=== PATIENT | female | born 1950 | race Caucasian/White ===

== ENCOUNTER → 2023-10-15 12:01 | Outpatient (REF) | payer MEDICARE, OTHER, SELFPAY | LOC: WDC 12:01 | PROVIDERS: ATTENDING PHYSICIAN Nurse Practitioner | DX: Z12.31 Encounter for screening mammogram for malignant neoplasm of breast (principal) | CPT/HCPCS: 77063; 77067 ==

== ENCOUNTER → 2023-12-11 13:08 | Outpatient (REF) | payer MEDICARE, OTHER, SELFPAY | LOC: RAD 13:08 | PROVIDERS: ATTENDING PHYSICIAN Obstetrics & Gynecology Gynecologic Oncology; FAMILY PHYSICIAN Internal Medicine | DX: C56.1 Malignant neoplasm of right ovary (principal) | CPT/HCPCS: 71260; 74177; Q9967 ==

== ENCOUNTER → 2024-03-26 08:32 | Outpatient (REF) | payer MEDICARE, OTHER, SELFPAY ==
[2024-03-26 08:56] VITALS: BP 164/61; BP_SYST 84
[2024-03-26] MEDS: ANCEF 10 IV (09:25)
[2024-03-26 10:25] VITALS: BP 176/79; BP_SYST 85
[2024-03-26 10:30] VITALS: BP 183/70; BP_SYST 82
[2024-03-26 10:35] VITALS: BP 165/106; BP_SYST 81
[2024-03-26 10:40] VITALS: BP 171/53; BP_SYST 81
[2024-03-26 10:55] VITALS: BP 171/53
== END ==
LOC: RADI 08:32
PROVIDERS: ATTENDING PHYSICIAN Obstetrics & Gynecology Gynecologic Oncology
DX: C56.1 Malignant neoplasm of right ovary (principal)
CPT/HCPCS: 36561; 76937; 77001; 99152; 99153; C1788

== ENCOUNTER → 2024-04-20 08:05 | Outpatient (REF) | payer MEDICARE, OTHER, SELFPAY ==
[2024-04-20 10:23] LABS: % Basophils 0.4 % (0-2); % Eosinophils 2.7 % (0-6); % Immature Granulocytes 0.6 % (0-0.5); % Lymphocytes 25.6 % (20.5-51.1); % Monocytes 9.3 % (1.7-9.3); % Neutrophils 61.4 % (42.2-75.2); Absolute Eosinophils 0.1 10^3/uL (0-0.7); Absolute Lymphocytes 1.2 10^3/uL (1.2-3.4); Absolute Monocytes 0.5 10^3/uL (0.1-0.6); Hematocrit 35.3 % (37.0-47.0); Hemoglobin 11.8 g/dL (12.0-16.0); Mean Corp Hgb Conc. 33.4 g/dL (33.0-37.0); Mean Corpuscular Hgb 31.8 pg (27.0-31.0); Mean Corpuscular Volume 95.1 fL (81.0-99.0); Mean Platelet Volume 10.8 fL (7.4-10.4); Nucleated Red Blood Cells % 0 %; Platelet Count 165 10^3/uL (130-400); Red Blood Cell Count 3.71 10^6/uL (4.20-5.40); Red Cell Dist. Width 12.7 % (11.5-14.5); White Blood Cell Count 4.9 10^3/uL (4.8-10.8)
[2024-04-20 12:02] LABS: Protein/creatinine Ratio 0.1; Urine Protein 7 mg/dl
[2024-04-20 14:03] LABS: ALT (SGPT) 14 U/L (0-35); AST (SGOT) 23 U/L (14-36); Alkaline Phosphatase 98 U/L (38-126); Blood Urea Nitrogen 25 mg/dl (7-17); Calcium 9.3 mg/dl (8.4-10.2); Carbon Dioxide 28 mmol/L (22-30); Chloride 103 mmol/L (98-107); Glucose 125 mg/dl (70-99); Potassium 3.9 mmol/L (3.5-5.1); Sodium 138 mmol/L (135-145); Total Bilirubin 0.6 mg/dl (0.2-1.3); Total Protein 6.7 g/dl (6.3-8.2); eGFR > 60.00
[2024-04-20 14:53] LABS: CA 125 14.7 U/mL (0-35)
== END ==
LOC: REG 08:05
PROVIDERS: ATTENDING PHYSICIAN Obstetrics & Gynecology Gynecologic Oncology; FAMILY PHYSICIAN Internal Medicine; REFERRING PHYSICIAN Internal Medicine Cardiovascular Disease
DX: C56.1 Malignant neoplasm of right ovary (principal); G62.0 Drug-induced polyneuropathy; C78.7 Secondary malignant neoplasm of liver and intrahepatic bile duct; E66.01 Morbid (severe) obesity due to excess calories; E11.9 Type 2 diabetes mellitus without complications; R19.03 Right lower quadrant abdominal swelling, mass and lump
CPT/HCPCS: 36415; 80053; 82570; 84156; 85025; 86304

== ENCOUNTER → 2024-05-04 08:58 | Outpatient (REF) | payer MEDICARE, OTHER, SELFPAY ==
[2024-05-04 10:14] LABS: % Basophils 0.7 % (0-2); % Eosinophils 2.5 % (0-6); % Immature Granulocytes 0.4 % (0-0.5); % Lymphocytes 21.7 % (20.5-51.1); % Monocytes 4.9 % (1.7-9.3); % Neutrophils 69.8 % (42.2-75.2); Absolute Eosinophils 0.1 10^3/uL (0-0.7); Absolute Monocytes 0.2 10^3/uL (0.1-0.6); Absolute Neutrophils 3.1 10^3/uL (1.4-6.5); Hematocrit 37.2 % (37.0-47.0); Hemoglobin 12.6 g/dL (12.0-16.0); Mean Corp Hgb Conc. 33.9 g/dL (33.0-37.0); Mean Corpuscular Volume 94.4 fL (81.0-99.0); Mean Platelet Volume 10.5 fL (7.4-10.4); Nucleated Red Blood Cells % 0 %; Platelet Count 166 10^3/uL (130-400); Red Blood Cell Count 3.94 10^6/uL (4.20-5.40); Red Cell Dist. Width 12.7 % (11.5-14.5); White Blood Cell Count 4.5 10^3/uL (4.8-10.8)
[2024-05-04 10:32] LABS: Protein/creatinine Ratio 0.1; Urine Protein 11 mg/dl
[2024-05-04 10:45] LABS: ALT (SGPT) 14 U/L (0-35); AST (SGOT) 22 U/L (14-36); Albumin 3.9 g/dl (3.5-5.0); Alkaline Phosphatase 93 U/L (38-126); Blood Urea Nitrogen 22 mg/dl (7-17); Calcium 9.1 mg/dl (8.4-10.2); Carbon Dioxide 26 mmol/L (22-30); Chloride 104 mmol/L (98-107); Glucose 136 mg/dl (70-99); HDL Cholesterol 51 mg/dl; LDL Cholesterol, Calculated 135 mg/dl; Potassium 3.9 mmol/L (3.5-5.1); Sodium 140 mmol/L (135-145); Total Bilirubin 0.6 mg/dl (0.2-1.3); Total Cholesterol 220 mg/dl (50-199); Total Protein 6.9 g/dl (6.3-8.2); Triglyceride 170 mg/dl (10-149); Very Low Density Lipoprotein 34 mg/dl (0-30); eGFR > 60.00
[2024-05-04 11:35] LABS: Vitamin D, 25-OH*** 21.6 ng/mL (30-80)
[2024-05-04 12:09] LABS: Vitamin B12 264 pg/ml (239-931)
[2024-05-04 13:25] LABS: Glycohemoglobin (HgbA1c) 6.2 % (4.0-5.6)
== END ==
LOC: REG 08:58
PROVIDERS: ATTENDING PHYSICIAN Nurse Practitioner; FAMILY PHYSICIAN Internal Medicine; REFERRING PHYSICIAN Obstetrics & Gynecology Gynecologic Oncology
DX: R22.1 Localized swelling, mass and lump, neck (principal); E11.9 Type 2 diabetes mellitus without complications; E78.5 Hyperlipidemia, unspecified; E55.9 Vitamin D deficiency, unspecified; E53.8 Deficiency of other specified B group vitamins; C56.1 Malignant neoplasm of right ovary; G62.0 Drug-induced polyneuropathy; C78.7 Secondary malignant neoplasm of liver and intrahepatic bile duct; E66.01 Morbid (severe) obesity due to excess calories; R19.03 Right lower quadrant abdominal swelling, mass and lump
CPT/HCPCS: 36415; 80053; 80061; 82306; 82570; 82607; 83036; 84156; 85025

== ENCOUNTER → 2024-05-21 09:48 | Outpatient (REF) | payer MEDICARE, OTHER, SELFPAY | LOC: RAD 09:48 | PROVIDERS: ATTENDING PHYSICIAN Nurse Practitioner; FAMILY PHYSICIAN Internal Medicine | DX: M25.552 Pain in left hip (principal) | CPT/HCPCS: 73502 ==

== ENCOUNTER → 2024-07-02 09:04 | Outpatient (REF) | payer MEDICARE, OTHER, SELFPAY | LOC: RAD 09:04 | PROVIDERS: ATTENDING PHYSICIAN Registered Nurse; FAMILY PHYSICIAN Internal Medicine | DX: C56.1 Malignant neoplasm of right ovary (principal); G62.0 Drug-induced polyneuropathy; C78.7 Secondary malignant neoplasm of liver and intrahepatic bile duct; E66.01 Morbid (severe) obesity due to excess calories; E11.9 Type 2 diabetes mellitus without complications; R19.03 Right lower quadrant abdominal swelling, mass and lump | CPT/HCPCS: 71260; 74177; Q9967 ==

== ENCOUNTER → 2024-07-29 11:09 | Outpatient (REF) | payer MEDICARE, OTHER, SELFPAY | LOC: RAD 11:09 | PROVIDERS: ATTENDING PHYSICIAN Otolaryngology; FAMILY PHYSICIAN Internal Medicine; REFERRING PHYSICIAN Obstetrics & Gynecology Gynecologic Oncology | DX: J32.4 Chronic pansinusitis (principal) | CPT/HCPCS: 70486 ==

== ENCOUNTER → 2024-08-14 08:00 | Outpatient (REF) | payer MEDICARE, OTHER, SELFPAY | LOC: RCS 08:00 | PROVIDERS: ATTENDING PHYSICIAN Registered Nurse; FAMILY PHYSICIAN Internal Medicine | DX: C56.1 Malignant neoplasm of right ovary (principal); G62.0 Drug-induced polyneuropathy; C78.7 Secondary malignant neoplasm of liver and intrahepatic bile duct; E66.01 Morbid (severe) obesity due to excess calories; E11.9 Type 2 diabetes mellitus without complications; R19.03 Right lower quadrant abdominal swelling, mass and lump | CPT/HCPCS: 93306 ==

== ENCOUNTER → 2024-08-31 15:00 | Outpatient (REF) | payer MEDICARE, OTHER, SELFPAY | LOC: CLAB 15:00 | PROVIDERS: ATTENDING PHYSICIAN Otolaryngology | DX: J32.4 Chronic pansinusitis (principal) | CPT/HCPCS: 87070; 87205 ==

== ENCOUNTER → 2024-09-16 09:58 | Outpatient (REF) | payer MEDICARE, OTHER, SELFPAY | LOC: RAD 09:58 | PROVIDERS: ATTENDING PHYSICIAN Obstetrics & Gynecology Gynecologic Oncology; FAMILY PHYSICIAN Internal Medicine | DX: C56.1 Malignant neoplasm of right ovary (principal); G62.0 Drug-induced polyneuropathy; C78.7 Secondary malignant neoplasm of liver and intrahepatic bile duct; E66.01 Morbid (severe) obesity due to excess calories; E11.9 Type 2 diabetes mellitus without complications; R19.03 Right lower quadrant abdominal swelling, mass and lump | CPT/HCPCS: 71260; 74177; Q9967 ==

== ENCOUNTER → 2024-10-01 18:09 | Outpatient (REF) | payer MEDICARE, OTHER, SELFPAY | LOC: CLAB 18:09 | PROVIDERS: ATTENDING PHYSICIAN Otolaryngology | DX: J32.4 Chronic pansinusitis (principal); J31.0 Chronic rhinitis; L92.9 Granulomatous disorder of the skin and subcutaneous tissue, unspecified | CPT/HCPCS: 87070; 87205 ==

== ENCOUNTER → 2024-10-18 11:50 | Outpatient (REF) | payer MEDICARE, OTHER, SELFPAY | LOC: WDC 11:50 | PROVIDERS: ATTENDING PHYSICIAN Nurse Practitioner | DX: Z12.31 Encounter for screening mammogram for malignant neoplasm of breast (principal) | CPT/HCPCS: 77063; 77067 ==

== ENCOUNTER → 2024-11-30 17:15 | Outpatient (REF) | payer MEDICARE, OTHER, SELFPAY | LOC: RCS 17:15 | PROVIDERS: ATTENDING PHYSICIAN Internal Medicine Hematology & Oncology; FAMILY PHYSICIAN Internal Medicine | DX: C56.1 Malignant neoplasm of right ovary (principal); G62.0 Drug-induced polyneuropathy; C78.7 Secondary malignant neoplasm of liver and intrahepatic bile duct; E66.01 Morbid (severe) obesity due to excess calories; E11.9 Type 2 diabetes mellitus without complications; R19.03 Right lower quadrant abdominal swelling, mass and lump | CPT/HCPCS: 93306 ==

== ENCOUNTER → 2024-12-18 07:14 | Outpatient (REF) | payer MEDICARE, OTHER, SELFPAY ==
[2024-12-18 09:00] LABS: Protein/creatinine Ratio 0.5; Urine Protein 62 mg/dl
[2024-12-18 09:11] LABS: ALT (SGPT) 17 U/L (0-35); AST (SGOT) 24 U/L (14-36); Albumin 3.3 g/dl (3.5-5.0); Alkaline Phosphatase 116 U/L (38-126); Blood Urea Nitrogen 37 mg/dl (7-17); Carbon Dioxide 28 mmol/L (22-30); Chloride 110 mmol/L (98-107); Glucose 130 mg/dl (70-99); Potassium 4.9 mmol/L (3.5-5.1); Sodium 144 mmol/L (135-145); Total Bilirubin 0.5 mg/dl (0.2-1.3); Total Protein 5.9 g/dl (6.3-8.2); eGFR 59.12
[2024-12-20 19:05] LABS: CA 125 13.8 U/mL (0-35)
== END ==
LOC: REG 07:14
PROVIDERS: ATTENDING PHYSICIAN Obstetrics & Gynecology Gynecologic Oncology; FAMILY PHYSICIAN Internal Medicine; OTHER PHYSICIAN Specialist
DX: C56.1 Malignant neoplasm of right ovary (principal); G62.0 Drug-induced polyneuropathy; C78.7 Secondary malignant neoplasm of liver and intrahepatic bile duct; E66.01 Morbid (severe) obesity due to excess calories; E11.9 Type 2 diabetes mellitus without complications; R19.03 Right lower quadrant abdominal swelling, mass and lump; I10 Essential (primary) hypertension; R80.9 Proteinuria, unspecified
CPT/HCPCS: 36415; 80053; 82570; 84156; 86304

== ENCOUNTER → 2025-01-20 11:38 | Outpatient (REF) | payer MEDICARE, OTHER, SELFPAY | LOC: RAD 11:38 | PROVIDERS: ATTENDING PHYSICIAN Physician Assistant Surgical; FAMILY PHYSICIAN Internal Medicine | DX: C56.1 Malignant neoplasm of right ovary (principal); G62.0 Drug-induced polyneuropathy; C78.7 Secondary malignant neoplasm of liver and intrahepatic bile duct; E66.1 Drug-induced obesity; E11.9 Type 2 diabetes mellitus without complications; R19.03 Right lower quadrant abdominal swelling, mass and lump | CPT/HCPCS: 71260; 74177; Q9967 ==

== ENCOUNTER → 2025-02-21 09:26 | Outpatient (REF) | payer MEDICARE, OTHER, SELFPAY | LOC: RCS 09:26 | PROVIDERS: ATTENDING PHYSICIAN Physician Assistant; FAMILY PHYSICIAN Internal Medicine; REFERRING PHYSICIAN Obstetrics & Gynecology Gynecologic Oncology | DX: I35.0 Nonrheumatic aortic (valve) stenosis (principal); C56.9 Malignant neoplasm of unspecified ovary; T45.1X5D Adverse effect of antineoplastic and immunosuppressive drugs, subsequent encounter | CPT/HCPCS: 93306; 93356 ==

== ENCOUNTER → 2025-03-07 07:00 | Outpatient (REF) | payer MEDICARE, OTHER, SELFPAY | LOC: RAD 07:00 | PROVIDERS: ATTENDING PHYSICIAN Specialist; FAMILY PHYSICIAN Nurse Practitioner | DX: N18.2 Chronic kidney disease, stage 2 (mild) (principal); I10 Essential (primary) hypertension | CPT/HCPCS: 93975 ==

== ENCOUNTER → 2025-04-26 08:25 | Outpatient (REF) | payer MEDICARE, OTHER, SELFPAY | LOC: RAD 08:25 | PROVIDERS: ATTENDING PHYSICIAN Obstetrics & Gynecology Gynecologic Oncology; FAMILY PHYSICIAN Internal Medicine | DX: C56.1 Malignant neoplasm of right ovary (principal); G62.0 Drug-induced polyneuropathy; C78.7 Secondary malignant neoplasm of liver and intrahepatic bile duct; E66.01 Morbid (severe) obesity due to excess calories; E11.9 Type 2 diabetes mellitus without complications; R19.03 Right lower quadrant abdominal swelling, mass and lump; R53.81 Other malaise; D63.8 Anemia in other chronic diseases classified elsewhere; R80.9 Proteinuria, unspecified | CPT/HCPCS: 71260; 74177; Q9967 ==

== ENCOUNTER → 2025-05-03 07:35 | Outpatient (REF) | payer MEDICARE, OTHER, SELFPAY ==
[2025-05-03 07:55] VITALS: BP 150/58; BP_SYST 70
[2025-05-03 08:35] VITALS: BP 152/58
[2025-05-03 11:47] LABS: Body Fluid Second Tech EM
== END ==
LOC: RADI 07:35
PROVIDERS: ATTENDING PHYSICIAN Obstetrics & Gynecology Gynecologic Oncology; FAMILY PHYSICIAN Internal Medicine
DX: J90 Pleural effusion, not elsewhere classified (principal); Z85.43 Personal history of malignant neoplasm of ovary
CPT/HCPCS: 32555; 71045; 83615; 84157; 87015; 87070; 87205; 88112; 88305; 88341; 88342; 89051

== ENCOUNTER → 2025-05-17 13:50 | Outpatient (REF) | payer MEDICARE, OTHER, SELFPAY | LOC: HWRAD 13:50 | PROVIDERS: ATTENDING PHYSICIAN Obstetrics & Gynecology Gynecologic Oncology; FAMILY PHYSICIAN Internal Medicine | DX: J90 Pleural effusion, not elsewhere classified (principal); C56.1 Malignant neoplasm of right ovary; G62.0 Drug-induced polyneuropathy | CPT/HCPCS: 71250 ==

== ENCOUNTER → 2025-05-20 15:26 | Outpatient (REF) | payer MEDICARE, OTHER, SELFPAY | LOC: RCS 15:26 | PROVIDERS: ATTENDING PHYSICIAN Internal Medicine Cardiovascular Disease; FAMILY PHYSICIAN Internal Medicine | DX: I50.30 Unspecified diastolic (congestive) heart failure (principal); I34.0 Nonrheumatic mitral (valve) insufficiency | CPT/HCPCS: 93306 ==

== ENCOUNTER 2025-09-02 19:03 | Inpatient (IN) | payer MEDICARE, OTHER, SELFPAY ==
[2025-09-02 12:38] VITALS: BP 152/67
[2025-09-02 13:03] LABS: Hematocrit 26.4 % (37.0-47.0); Hemoglobin 8.6 g/dL (12.0-16.0); Mean Corp Hgb Conc. 32.6 g/dL (33.0-37.0); Mean Corpuscular Volume 96.7 fL (81.0-99.0); Nucleated Red Blood Cells % 0 %; Platelet Count 135 10^3/uL (130-400); Red Cell Dist. Width 15.7 % (11.5-14.5)
[2025-09-02 13:23] LABS: ALT (SGPT) 23 U/L (0-35); AST (SGOT) 37 U/L (14-36); Albumin 3.9 g/dl (3.5-5.0); Alkaline Phosphatase 142 U/L (38-126); Blood Urea Nitrogen 80 mg/dl (7-17); Calcium 9.2 mg/dl (8.4-10.2); Carbon Dioxide 15 mmol/L (22-30); Chloride 112 mmol/L (98-107); Glucose 142 mg/dl (70-99); Potassium 4.3 mmol/L (3.5-5.1); Sodium 140 mmol/L (135-145); Total Protein 7.5 g/dl (6.3-8.2); eGFR 25.73
[2025-09-02 13:25] LABS: COVID-19 Antigen Negative (Negative)
[2025-09-02 13:38] LABS: Troponin I 0.039 ng/ml
--- NOTE | 2025-09-02 14:36 | ED.GENMED ---
History of Present Illness
General
Chief Complaint: Breathing Problem
Time Seen by Provider: 09/02/25 14:09
History of Present Illness
History of Present Illness:
Patient is a 74-year-old woman with history of ovarian cancer on chemotherapy presenting to the emergency department with shortness of breath upon exertion. Patient states has been ongoing for a little bit of time. Previously with shortness of
breath with significant exertion. Now it is in the small moved causes shortness of breath. She did have chest pressure this morning while she was driving however has never had it before. No nausea vomiting. No lightheadedness or dizziness. She
does state that she had a pleural effusion a few months ago. She does see Dr. Oliva from cardiology. No known blockages or ischemic heart disease. Last tress test was many years ago.
Past History
Past History
ED Past Medical History: Cancer (Ovarian cancer x2 with chemotherapy and surgeries), HTN, Hypercholesterolemia, NIDDM, Other (Diverticulosis, colon polyps, ovarian cancer, sleep apnea) and Other
ED Past Surgical History: Orthopedic
Social History
Tobacco: Non-smoker
Personal:
Living: with family
Phy Exam
Physical Exam
Physical Exam:
GENERAL: in no acute distress
HEENT: normocephalic, extraocular movements intact, moist oral mucosa
NECK: normal inspection
RESPIRATORY: no respiratory distress, crackles at left lower base, short of breath with small movements
CARDIOVASCULAR: regular rate and rhythm
ABDOMEN/: soft, non-distended, non-tender to palpation, no rebound or guarding
EXTREMITIES: non-tender, no edema/swelling
NEUROLOGIC: awake and alert, moves all extremities
SKIN: warm
Scores
Heart Failure Risk
Heart Failure Risk Score: Not Applicable
Course
Orders/Labs/Results
Orders:
Orders
09/02/25 12:40
Electrocardiogram (*1) Urgent
Reason for Study: Shortness of Breath
09/02/25 12:41
EKG- Treatment ONCE
09/02/25 12:44
COVID-19 Antigen Urgent
Source: Nasal Swab
Complete Blood Count/With Diff Urgent
Comprehensive Metabolic Panel Urgent
Troponin I Urgent
Influenza A+B Rapid Molecular Urgent
ROMAN Source: Nasal Swab
Specimen Description:
09/02/25 14:19
CT Chest Angio W/wo Iv Contras Urgent
Comment:
Reason For Exam: GILL, hx ovarian cancer pleural effusion
EKG- Treatment ONCE
09/02/25 14:31
CR Chest - 2 Views Urgent
Comment:
Reason For Exam: GILL
09/02/25 15:20
D-Dimer Urgent
NT-proBNP Urgent
Troponin I Urgent
09/02/25 15:44
Electrocardiogram (*1) Urgent
Reason for Study: Shortness of Breath
09/02/25 16:15
Heparin Pf [Heparin Lock Flush] 500 unit IV PER PROTOCOL
09/02/25 16:52
VQ Scan [NM Lung Scan Vent/perf ] Urgent
Comment:
Reason For Exam: positive dimer
Abnormal Lab Results
09/02/25 09/02/25
12:44 15:20
RBC 2.73 L 10^6/uL
(4.20-5.40)
Hgb 8.6 L g/dL
(12.0-16.0)
Hct 26.4 L %
(37.0-47.0)
MCH 31.5 H pg
(27.0-31.0)
MCHC 32.6 L g/dL
(33.0-37.0)
RDW 15.7 H %
(11.5-14.5)
Abs Immat Gran (auto) 0.1 H 10^3/uL
(0-0.05)
Absolute Lymphs (auto) 0.9 L 10^3/uL
(1.2-3.4)
Immature Gran % 1.1 H %
(0-0.5)
Neutrophils % 75.6 H %
(42.2-75.2)
Lymphocytes % 12.2 L %
(20.5-51.1)
D-Dimer 2.94 H ug/mlFEU
(0.00-0.50)
Chloride 112 H mmol/L
(98-107)
Carbon Dioxide 15 L mmol/L
(22-30)
BUN 80 H mg/dl
(7-17)
Creatinine 2.0 H mg/dL
(0.6-1.0)
Glucose 142 H mg/dl
(70-99)
AST 37 H U/L
(14-36)
Alkaline Phosphatase 142 H U/L
(38-126)
Troponin I 0.039 H* ng/ml
09/02/25 12:44
09/02/25 12:44
Vital Signs
Initial and Last Documented VS:
Initial Vital Signs
Pulse Resp BP Pulse Ox
73 18 152/67 93
09/02/25 12:38 09/02/25 12:38 09/02/25 12:38 09/02/25 12:38
Last Documented Vital Signs
Temp Pulse Resp BP Pulse Ox
97.5 F 73 18 152/67 97
09/02/25 12:41 09/02/25 12:38 09/02/25 12:38 09/02/25 12:38 09/02/25 17:12
MDM/Problems Addressed
Differential Diagnosis Includes:
Patient is a 74-year-old woman with history of ovarian cancer on chemotherapy presenting to the emergency department with dyspnea on exertion that has been ongoing but now was even minimal movement. On arrival vitals unremarkable and exam does show
crackles at the left lower base. Differential is broad but consist of atypical ACS versus pleural effusion versus malignancy versus PE. Blood work obtained prior to evaluation does show an elevated troponin. No prior to compare to. Will obtain
delta. Will also add on BNP and dimer. EKG per my interpretation without any obvious ST changes.
*Pulse Oximetry
SaO2: 93
Oxygen Mode of Delivery: Room air
Patient hypoxic: yes
*Critical Care Note
Total Time (30-74mins, 75-104mins- exclusive of procedures): Not Applicable
Update Note
Update Note:
On reevaluation patient patient went to the bathroom and is hypoxic with significant SOB. Cxr per my interpretation with bilateral pleural effusions. bnp significantly elevated. dimer is elevated. patient will need a v/q scan. discussed with calibration laboratory technician
tech. discussed with hospitalist who accepted with v/q scan pending.
ED Attending Note
-
Portions of this chart may have been created with voice recognition software.� Occasional wrong word or��sound alike� substitutions may have occurred due to the inherent limitations of voice recognition software.
Discharge Plan
Departure
Patient Disposition: Admit
Date of Disposition: 09/02/25
Time of Disposition: 17:24
Presentation/result/management discussed w/ accepting MD/DO: Hospitalist
Discharge Problem:
Shortness of breath
Prescriptions:
No Action
metoprolol succinate [Toprol XL] 50 mg Tablet Extended Release 24 Hr
50 mg PO HS
cyanocobalamin (vitamin B-12) 1,000 mcg Tablet
1,000 mcg PO DAILY
Theragen Tablet
1 tab PO DAILY
amlodipine [Norvasc] 10 mg Tablet
10 mg PO DAILY
simvastatin [Zocor] 20 mg Tablet
20 mg PO HS
zolpidem [Ambien] 5 mg Tablet
5 mg PO HS
furosemide [Lasix] 20 mg Tablet
20 mg PO DAILY
cholecalciferol (vitamin D3) [Vitamin D3] 25 mcg (1,000 unit) Tablet,Chewable
25 mcg PO DAILY
hydralazine 50 mg Tablet
50 mg PO BID
Referrals:
Lien Hahn MD [Family Provider, Internal Medicine]
Interventions
Interventions:
*General Assessment Last Done: 09/02/25 12:41
*Neglect/Abuse Screening Last Done: 09/02/25 12:42
*ED COVID-19 Vaccine History Last Done: 09/02/25 12:41
*ED Influenza Vaccine History Last Done: 09/02/25 12:41
*Risk Screen - Suicide (C-SSRS) Last Done: 09/02/25 12:42
ED- Cardiac Assessment Last Done: 09/02/25 17:12
ED- Pulmonary Assessment Last Done: 09/02/25 17:12
Discharge Date and Time
Print Language: GREENLANDIC
[2025-09-02 16:07] LABS: Troponin I 0.033 ng/ml
[2025-09-02 16:23] LABS: D-Dimer 2.94 ug/mlFEU (0.00-0.50)
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
[2025-09-02 18:12] VITALS: BP 163/62
--- NOTE | 2025-09-02 18:14 | W.PN.UPDATE ---
Update Note
Progress Note Update
This note serves as an addendum to the H&P by barley steeper Sandie WESZHANE
HPI
74F
Seen at ER: for evaluation of worsening GILL and hypoxia , currently requiring NC O2
PHX significant for CA Ovary- last chemo in April
Initial trop was elevated but 2nd is flat
POS D Dimer and GFR is below the cut off for contrast CTC thus Nuclear Medicine came in for VQ scan
Relevant VS
Temp Pulse Resp BP Pulse Ox
97.5 F 75 20 163/62 92
09/02/25 12:41 09/02/25 18:12 09/02/25 18:12 09/02/25 18:12 09/02/25 18:00
09/02/25
12:38 09/02/25
14:38
SaO2 93 93
Oxygen Mode of Delivery Room air Room air
PE
Gen: NAD
HEENT: anicteric
Neck: supple
Lungs: CTA
Cor: RRR
Abdomen:�soft NT NG
CANDLES POURER: awake and alert, moves all extremities
MS: no edema
Psych: Nl mood and affect
Relevant Data
Labs
05/04/24 09/02/25
09:15 12:44
WBC 7.1
Hgb 12.6 8.6 L
Plt Count 135
09/02/25
15:20
D-Dimer 2.94 H
12/18/24 09/02/25 09/02/25
07:32 12:44 15:20
Sodium 140
Potassium 4.3
Chloride 112 H
Carbon Dioxide 15 L
BUN 80 H
Creatinine 1.0 2.0 H
eGFR 59.12 25.73
Troponin I 0.039 0.033
Tsp-E-Urxhaazhtan Pept 7440
CXR
Small bilateral pleural effusions.
EKG
NORMAL SINUS RHYTHM
NORMAL ECG
WHEN COMPARED WITH ECG OF 28-May-2016 16:41,
NO SIGNIFICANT CHANGE WAS FOUND
Confirmed by MD MITESH, EDGARD Muller ([id number]) on 09/02/2025 1:30:04 P
05/20/24 CHARLY
1. Left ventricular ejection fraction is normal with an ejection fraction of 59 % by Ríos's biplane method of discs.
2. Aortic valve area = 1.05 cm².
3. Moderate aortic stenosis noted peak gradient 33mmHg and mean gradient 18mmHg.
4. Aleta EPIQ left ventricular global strain is -19.9%.
5. Right ventricular size and systolic function are within normal limits.
NO PRIOR hospitalist admission:
ASSESSMENT & PLAN
Suspect likely acute HF on chr HFpEF than acute PE
- Worsening GILL and acute hypoxia requiring NC O2
- Elevated D Dimer
- Significant pro BNP
- Small B/L pleural effusion
- IV Lasix [address] [facility] PO lasix
- c/w Metoprolol XL
- Cannot have Contrast CTC due to eGFR 25
- FU IOs, daily Wt , daily BMP
- awaiting VQ scan
- [facility] Card consult ( Known to Dr Justina Oliva)
JEREMÍAS suspect CRS due to acute HF
- FU Cr after IV Lasix
- Renal consult ( Known to Dr Cramer )
HLD
- c/w Simvastatin
DVT Px: SQH
Full code
IP TLM
--- NOTE | 2025-09-02 21:15 | PTCARENOTE ---
Patient arrived to 336-2 from ED via stretcher, ambulated in room to bed with assist of one person, unable to go long distance due to GILL/SOB. Arrived to unit on 2LNC - does not wear at baseline. Initiated on shelter monitor #7 and verified. Stat
dose of IV lasix ordered while patient in ED -- administered hours late as patient had not yet arrived to unit when initially ordered. Patient able to stand at bedside with standby assist to use BSC -- urine frequency noted with Lasix dosing --
patient tolerating well with minimal SOB present, recovers quick. Call higgins in reach, will ring for assistance. Will monitor.
[2025-09-02 21:16] VITALS: BP 155/61
[2025-09-02] MEDS: LIPITOR 10 MG PO (22:23)
[2025-09-02] MEDS: TOPROL XL 50 MG PO (22:23)
[2025-09-02] MEDS: APRESOLINE 50 MG PO (22:23)
[2025-09-02] MEDS: AMBIEN 5 MG PO (22:24)
[2025-09-02] MEDS: LASIX 40 MG IV (22:51)
[2025-09-02 23:00] VITALS: BP 142/58
[2025-09-03 00:42] VITALS: BMI 34.9
[2025-09-03] MEDS: HEPARIN 5000 UNITS SC ×3 (01:11→17:05)
[2025-09-03 03:00] VITALS: BP 150/63
[2025-09-03 03:53] VITALS: BMI 34.5
--- NOTE | 2025-09-03 04:02 | PTCARENOTE ---
Addendum entered by Zohreh Buchanan RN 09/03/25 04:07:
[place] mist spray ordered per CALL MANAGER, will provide to patient.
Original Note:
Patient c/o dry nose, states she uses nasal spray at home twice a day but could not remember what the name of it is. Patient is maintained on 2LNC, humidification added for comfort. Notified NAJMA Conde of patient request for nasal spray to help
with dry nose, waiting on further instruction. Call higgins within reach, will monitor.
--- NOTE | 2025-09-03 04:08 | PTCARENOTE ---
Patient ordered EKG upon transfer while still in ED this afternoon, patient states she had EKG done while in ED. Clarified orders with NAJMA Conde, no need for further EKG at this time.
--- NOTE | 2025-09-03 08:01 | CON.CAR ---
Consultation
Consultation Request
Date/Time Consultation Requested: 09/02/2025, 2054
Date/Time Consultation Performed: 09/03/2025, 729
Requesting Provider: Shanti Campos
Performing Provider: Deana
Reason for Consultation: HF
Medical History
-
Chief Complaint: SOB
History of Present Illness:
Patient is a very pleasant 74-year-old female with a past medical history significant for hypertension, hyperlipidemia, diabetes mellitus type 2, moderate aortic stenosis, mild to moderate mitral regurgitation, heart failure with preserved ejection
fraction, ovarian cancer status post chemotherapy (last dose April) who presents due to worsening lower extremity swelling, shortness of breath. In discussion with patient, she reports increasing shortness of breath with activity and exertion over
the last few weeks. She states that initially it was mild however over the past few days it has become more significant additionally, she had reported increasing lower extremity swelling over the last few days as well as orthopnea requiring her to
sleep in a recliner/chair to help with breathing. She denies any lightheadedness, dizziness, near-syncope, syncope, palpitations, PND, or weakness. She did state that she had ate single episode of epigastric/lower chest tightness while on her way
to the emergency department which lasted a couple minutes in duration without aggravating or alleviating factors. She reported no other chest discomfort or pain at rest or with activity or exertion. Patient is a non-smoker, no alcohol, no
illicits. Of note, she had called the office for outpatient documentation the beginning of August with increasing weight over 10 pounds in over 2 weeks Lasix 20 mg daily was then started. Prior to this, she was on Lasix 40 mg twice daily
alternating twice weekly with 60 mg twice daily. This has been discussed continued by oncology due to dehydration. On presentation to the emergency department, patient was noted to have elevated creatinine of 2.0 which is off her baseline of 1.0
at last check. Additionally, troponin was initially 0.039 which downtrended to 0.33. BNP was noted to be 7440 and D-dimer was elevated greater than 2. Patient underwent lower extremity Doppler and VQ scan both of which were unremarkable. Initial
EKG demonstrated sinus rhythm without significant ST-T abnormality and no significant change from 2016. Chest x-ray showed pleural effusions.
Past Medical History
Past Medical History: Other (See HPI)
Past Surgical History: Other (Omentectomy, appendectomy, right sided port, oophorectomy, cataract surgery, left knee replacement)
Social History
Tobacco: Former Smoker
Alcohol: None
Drug: None
Family History
Family History: Reviewed & Not Pertinent
Allergies / Home Medications
Allergy/AdvReac Type Severity Reaction Status Date / Time
adhesive tape Allergy Unknown Verified 08/17/21 09:09
carboplatin Allergy Anaphylaxis Verified 09/02/25 18:30
cisplatin Allergy Rash Verified 08/17/21 09:09
house dust Allergy ITCHY Verified 09/02/25 18:30
sulfamethoxazole (From Allergy Unknown Verified 09/02/25 18:30
Bactrim)
trimethoprim (From Bactrim) Allergy Unknown Verified 09/02/25 18:30
weed pollen Allergy ITCHY Verified 09/02/25 18:30
�Medication �Instructions �Recorded �Confirmed �Type
amlodipine 10 mg tablet (Norvasc) 10 mg PO DAILY Blood Pressure 09/02/25 09/02/25 History
cholecalciferol (vitamin D3) 25 25 mcg PO DAILY Supplement 09/02/25 09/02/25 History
mcg (1,000 unit) chewable tablet
(Vitamin D3)
cyanocobalamin (vitamin B-12) 1,000 mcg PO DAILY Supplement 09/02/25 09/02/25 History
1,000 mcg tablet
furosemide 20 mg tablet (Lasix) 20 mg PO DAILY Fluid 09/02/25 09/02/25 History
Retention/Swelling
hydralazine 50 mg tablet 50 mg PO BID Blood Pressure 09/02/25 09/02/25 History
metoprolol succinate 50 mg 50 mg PO HS Heart Disease/Condition 09/02/25 09/02/25 History
tablet,extended release 24 hr
(Toprol XL)
simvastatin 20 mg tablet (Zocor) 20 mg PO HS High Cholesterol 09/02/25 09/02/25 History
therapeutic multivitamin 1 tab PO DAILY Supplement 09/02/25 09/02/25 History
zolpidem 5 mg tablet (Ambien) 5 mg PO HS Sleep 09/02/25 09/02/25 History
Review of Systems
-
History Source: Patient
Constitutional: Weight Gain
EENT: No Symptoms
Respiratory: Trouble Breathing
Cardiac: Chest Pain
Abdomen/GI: No Symptoms
: No Symptoms
Musculoskeletal: No Symptoms
Skin: No Symptoms
Neurological: No Symptoms
Endocrine: No Symptoms
Hematologic/Lymphatic: No Symptoms
Physical Exam
Vital Signs
Temp Pulse Resp BP Pulse Ox
98.2 F 72 18 150/63 96
09/03/25 03:00 09/03/25 03:00 09/03/25 03:00 09/03/25 03:00 09/03/25 03:00
Physical exam:
GENERAL: no acute distress
EYE: sclera anicteric
NECK: Supple, + JVD, no carotid bruit appreciated
ENT: normal nose, moist mucosal membranes
CARDIAC: Regular rate and rhythm, +S1/S2, 2/6 systolic ejection murmur RUSB; no rubs, or gallops
CHEST/PULMONARY: Normal effort, bibasilar crackles
ABDOMEN: Soft, without focal tenderness or distention
NEUROLOGICAL: Alert and oriented x3
SKIN: Warm and dry, no rash; bilateral 1+ edema lower EXTR
PSYCH: Normal and appropriate interaction.
Telemetry shows sinus rhythm
Lab Results
Troponin I 0.033 ng/ml 09/02/25 15:20
Crf-Y-Iwrkwzjpfga Pept 7440 pg/ml 09/02/25 15:20
Impression / Plan
-
PCP: Dr. Lien Hahn
Jewelry Estimator: Dr Justina Oliva
Impression:
Acute on chronic heart failure with preserved ejection fraction
� Evidence of volume overload on exam, imaging with chest x-ray
� BNP 7440
� Greater than 2-week history of increasing weight, increasing shortness of breath
� Previously on Lasix 20 mg daily this then placed on hold and has remained off diuretic therapy
Acute hypoxic respiratory insufficiency, multifactorial
� Likely related to above
� Patient's hemoglobin previously documented 11�12, initial admission 8.6 may have contributed to shortness of breath
JEREMÍAS, creatinine 2.0 (baseline 1.0�1.1)
Elevated troponin, likely non-PA injury
� Likely related to volume overload, elevated creatinine
� Single episode of chest/epigastric discomfort not associated with activity or exertion; no subsequent episode
Elevated D-dimer
� Lower extremity ultrasound negative
� VQ scan unremarkable
Hypertension
Diabetes mellitus type 2
Aortic stenosis, moderate
Dyslipidemia
Ovarian cancer status post chemotherapy
Echo 05/20/2025: EF 59%, moderate peak/mean 33/18 mmHg, GLS -19.9%, normal RV size and function, mild to moderate MR
Lexiscan MPI, 07/07/2017: anterior/apical fixed defect consistent with soft tissue attenuation, EF 74%, no ischemia noted.
Recommendation:
- Patient presenting with acute on chronic heart failure by symptoms and exam with noted elevated creatinine, BNP, troponin, D-dimer with normocytic anemia and no reported evidence of bleeding. Appreciate input by nephrology regarding JEREMÍAS. Repeat
lab work is pending this morning. If creatinine improving, would recommend IV diuretic therapy. However, will defer decision to nephrology given significant change in renal function from December.
�Repeat 2D echocardiogram to assess cardiac size, shape, function, and valvular anatomy in the setting of known heart failure preserved ejection fraction and aortic stenosis
� Patient's troponin likely myocardial injury secondary to acute on chronic heart failure. She can likely undergo outpatient ischemic evaluation unless clinical change during admission. EKG sinus rhythm without significant ST-T abnormality.
� Monitor on telemetry, replete electrolytes with goal potassium greater than 4, magnesium greater than 2
� Thyroid function pending
� Will follow
Data Reviewed
-
EKG: Tracing Personally Visualized and interpreted
Radiology: Report Reviewed by me
Medical Tests (Nuc Med, Echo etc): Report Reviewed by me
Labs: Labs Reviewed by me
Old Records: Reviewed
[2025-09-03] MEDS: NORVASC 10 MG PO (08:04)
[2025-09-03] MEDS: APRESOLINE 50 MG PO ×2 (08:04→21:15)
[2025-09-03 08:35] VITALS: BP 142/64
--- NOTE | 2025-09-03 08:57 | W.PN.HOSP.TC ---
Today's Communication/Plan
-
IV lasix if Cr improved
Assessment / Plan
Assessment / Plan
74F with DM, HTN, HLD, ovarian cancer, p/w several weeks of shortness of breath.
Acute Hypoxic Respiratory Insufficiency
Suspect secondary to CHF see below
Elevated D-dimer, given patient has ovarian cancer, wanted to rule out PE.
V/Q with low probability for PE
Lower extremity Dopplers negative for DVT
Wean off oxygen as able
Acute Heart Failure with Preserved EF
-Echo May 2025: Left ventricular ejection fraction 59%. Moderate aortic stenosis. Stage II diastolic dysfunction.
-Consulted Cardiology
Troponin level peaked at 0.039
Received IV Lasix, if creatinine improves, can resume IV diuresis
Repeat echo pending
TSH barely elevated 4.85, free T4 is WNL
cardiac monitor technician, trend weight, strict I's and O's
Acute Kidney Injury on CKD III
-Patient reports baseline Cr ~1.1, up to 2 on admit
-Consulted Nephrology
-Monitor creatinine closely following dose of diuretics
Non-anion gap metabolic acidosis
Bicarb 15
Check UA and serum ketones nephrology following
normocytic Anemia
-Patient reports baseline Cr ~10
-Patient denies black stools
-Hemetest stools
-Check iron, ferritin, TIBC, folate, vit b12
-Trend Hgb, dropped to 7.3 this morning, trend Q6
Diabetes Mellitus, Type II
-Patient is no longer on medications following weight loss
-Hgb A1c, pending
Essential Hypertension
-Continue amlodipine, hydralazine and metoprolol
BP controlled
Hyperlipidemia
-Continue simvastatin
Ovarian Cancer
s/p ROXANE/BSO and Chemotherapy
-Last chemotherapy in Apr 2025
DVT PPx
SC Heparin
Anticipated Discharge: > 48 hours
Subjective/Interval History
-
Date of Service: September 03, 2025
Still noticing shortness of breath. Denies any bleeding or excessive bruising.
Objective Data
-
Labs:
Laboratory Results
09/03/25
08:02
WBC Pending
Hgb Pending
Hct Pending
Plt Count Pending
Sodium Pending
Potassium Pending
Chloride Pending
Carbon Dioxide Pending
BUN Pending
Creatinine Pending
Glucose Pending
Calcium Pending
Vital Signs:
Vital Signs
Temp Pulse Resp BP Pulse Ox
98.4 F 70 18 142/64 94
09/03/25 08:35 09/03/25 08:35 09/03/25 08:35 09/03/25 08:35 09/03/25 08:35
I&O
09/02/25 09/03/25 09/04/25
06:59 06:59 06:59
Intake Total 480 / 480
Balance 480 / 480
Review of Systems
-
History Source: Patient
All other systems: Reviewed and negative
Physical Exam
-
General: No Apparent Distress
HEENT: Moist Mucous Membranes, Anicteric and PERRLA
Respiratory: Clear to Auscultation; Negative Wheezes, Rales or Rhonchi
Cardiac: Regular Rhythm and S1/S2; Negative Murmur, Rub or Gallop
GI: Soft, Nontender, Nondistended and Normal Bowel Sounds
Musculoskeletal: No Edema
Skin: Warm and Dry; Negative Rash, Ulcers or Lesions
Neuro: Awake and AO x 3
Hematologic / Lymphatic: No Lymphadenopathy
Psych: Calm
Data Reviewed
-
Diagnostic Radiology: Report Reviewed by me and Discussed with Patient
Medical Tests (Nuc Med, Echo etc): Report Reviewed by me and Discussed with Patient
Labs: Labs Reviewed by me and Discussed with Patient
Old Records: Reviewed
[2025-09-03 09:09] LABS: Hematocrit 22.2 % (37.0-47.0); Hemoglobin 7.3 g/dL (12.0-16.0); Mean Corp Hgb Conc. 32.9 g/dL (33.0-37.0); Mean Corpuscular Volume 94.9 fL (81.0-99.0); Platelet Count 115 10^3/uL (130-400); Red Cell Dist. Width 15.9 % (11.5-14.5)
[2025-09-03 10:50] LABS: Glycohemoglobin (HgbA1c) 5.4 % (4.0-5.9)
[2025-09-03 11:00] VITALS: BP 128/56
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
[2025-09-03 14:05] LABS: Blood Urea Nitrogen 79 mg/dl (7-17); Calcium 8.9 mg/dl (8.4-10.2); Carbon Dioxide 19 mmol/L (22-30); Chloride 111 mmol/L (98-107); Estimated Creatinine Clearance 24 ml/min; Glucose 106 mg/dl (70-99); Magnesium 1.9 mg/dl (1.6-2.3); Potassium 4.1 mmol/L (3.5-5.1); Sodium 139 mmol/L (135-145); eGFR 22.95
[2025-09-03 14:17] LABS: Hematocrit 22.2 % (37.0-47.0); Hemoglobin 7.3 g/dL (12.0-16.0)
[2025-09-03 16:44] VITALS: BP 126/52
[2025-09-03] MEDS: LASIX 40 MG IV (17:04)
[2025-09-03 18:15] LABS: Urine Character Clear (Clear)
[2025-09-03 18:29] LABS: Urine Squamous Cell >30 /LPF (Few)
[2025-09-03 18:31] LABS: Urine Red Blood Cell 0-2 /HPF (0-2)
[2025-09-03 18:42] LABS: Hematocrit 22.2 % (37.0-47.0); Hemoglobin 7.3 g/dL (12.0-16.0)
[2025-09-03 19:00] VITALS: BP 140/58
[2025-09-03] MEDS: AMBIEN 5 MG PO (21:15)
[2025-09-03] MEDS: LIPITOR 10 MG PO (21:15)
[2025-09-03] MEDS: TOPROL XL 50 MG PO (21:15)
[2025-09-03 23:00] VITALS: BP 136/62
[2025-09-04] VITALS (9 sets, daily range): BP systolic 127–138; BP diastolic 49–61; BMI 33.9; BMI 34.5
[2025-09-04] MEDS: HEPARIN 5000 UNITS SC ×4 (01:01→23:01)
[2025-09-04 02:08] LABS: Hematocrit 21.0 % (37.0-47.0); Hemoglobin 6.9 g/dL (12.0-16.0); Mean Corp Hgb Conc. 32.9 g/dL (33.0-37.0); Mean Corpuscular Volume 97.2 fL (81.0-99.0); Platelet Count 109 10^3/uL (130-400); Red Cell Dist. Width 15.5 % (11.5-14.5)
[2025-09-04 02:27] LABS: Blood Urea Nitrogen 83 mg/dl (7-17); Calcium 8.5 mg/dl (8.4-10.2); Carbon Dioxide 21 mmol/L (22-30); Chloride 108 mmol/L (98-107); Estimated Creatinine Clearance 23 ml/min; Glucose 109 mg/dl (70-99); Potassium 4.1 mmol/L (3.5-5.1); Sodium 136 mmol/L (135-145); eGFR 21.76
--- NOTE | 2025-09-04 02:41 | PTCARENOTE ---
Q6 H&H ordered during 99 draw resulted with Hgb 6.9, from 7.3 yesterday. Patient admitted with Hgb of 8.6. No obvious signs of active bleeding. No complaints offered from patient, remains asymptomatic at this time. VSS. NAJMA Bang
Jayashree notified. Awaiting further instruction at this time.
--- NOTE | 2025-09-04 03:14 | W.PN.UPDATE ---
Addendum entered and electronically signed by NAJMA Fisher 09/04/25 03:30:
repeat HH >7 will hold off on transfusion pending next draw results
Original Note:
Update Note
Progress Note Update
HH from 0100 resulted 6.9
Type and screen ordered. Repeat hh to re-confirm
Consent obtained.
Will order one unit PRBC if HH <7
[2025-09-04 03:16] LABS: Hematocrit 21.4 % (37.0-47.0); Hemoglobin 7.1 g/dL (12.0-16.0)
[2025-09-04] MEDS: NORVASC 10 MG PO (08:02)
[2025-09-04] MEDS: LASIX 40 MG IV (08:09)
[2025-09-04] MEDS: APRESOLINE 50 MG PO ×2 (08:09→20:26)
[2025-09-04 09:34] LABS: Hematocrit 22.9 % (37.0-47.0); Hemoglobin 7.5 g/dL (12.0-16.0)
--- NOTE | 2025-09-04 12:17 | W.PN.NEPH.PH ---
Today's Communication / Plan
-
Follow BMP
Assessment/Plan
-
Assessment
Decompensated heart failure preserved ejection fraction
JEREMÍAS, progressive kidney decline
Ovarian cancer on chemotherapy
Anemia
Diabetes mellitus type 2
Hypertension
Plan
Follow BMP
Continue IV Lasix for diuresis can probably switch to po tomorrow
Rising creatinine could be due to heart failure, diuresis or slow progression from Avastin
-
-
Date of Service: September 04, 2025
CC / HPI / ROS
-
Chief Complaint:
JEREMÍAS
History of Present Illness:
JEREMÍAS/Cr up to 2.3
acidosis better
weights down
still on O2
Review of Systems:
no CP/
minimal SOB
Labs
-
Labs:
WBC 5.5 10^3/uL (4.8-10.8) 09/04/25 01:31
RBC 2.16 10^6/uL (4.20-5.40) L 09/04/25 01:31
Hgb 7.5 g/dL (12.0-16.0) L 09/04/25 09:25
Hct 22.9 % (37.0-47.0) L 09/04/25 09:25
Plt Count 109 10^3/uL (130-400) L 09/04/25 01:31
Sodium 136 mmol/L (135-145) 09/04/25 01:31
Potassium 4.1 mmol/L (3.5-5.1) 09/04/25 01:31
Chloride 108 mmol/L (98-107) H 09/04/25 01:31
Carbon Dioxide 21 mmol/L (22-30) L 09/04/25 01:31
BUN 83 mg/dl (7-17) H 09/04/25 01:31
Creatinine 2.3 mg/dL (0.6-1.0) H 09/04/25 01:31
eGFR 21.76 09/04/25 01:31
Glucose 109 mg/dl (70-99) H 09/04/25 01:31
Calcium 8.5 mg/dl (8.4-10.2) 09/04/25 01:31
Jly-O-Lxhcgzuvykr Pept 7440 pg/ml 09/02/25 15:20
Albumin 3.9 g/dl (3.5-5.0) 09/02/25 12:44
Physical Exam
-
Vital Signs:
Vital Signs
Temp Pulse Resp BP Pulse Ox
98.1 F 67 19 138/60 95
09/04/25 07:00 09/04/25 07:00 09/04/25 07:00 09/04/25 07:00 09/04/25 07:00
Cardiovascular:: Regular rate and rhythm
Respiratory:: Bilateral: Coarse
Lung Excursion:: Normal
Abdomen:: Nontender and Soft
Bowel Sounds:: Normal
Extremity Edema:: None: Bilateral:
--- NOTE | 2025-09-04 13:30 | W.PN.CARDCBS ---
Today's Communication / Plan
-
Continue diuresis
Echo in the morning
Improvement in anemia has certainly helped improve her shortness of breath.
Impression / Plan
-
PCP: Dr. Lien Hahn
Compliance Advisor: Dr Justina Oliva
Impression:
Acute on chronic heart failure with preserved ejection fraction
� Evidence of volume overload on exam, imaging with chest x-ray
� BNP 7440
� Greater than 2-week history of increasing weight, increasing shortness of breath
� Previously on Lasix 20 mg daily this then placed on hold and has remained off diuretic therapy
Acute hypoxic respiratory insufficiency, multifactorial
� Likely related to above
� Patient's hemoglobin previously documented 11�12, initial admission 8.6 and has trended downward as low as 6.9 and very likely contributing to shortness of breath
JEREMÍAS, creatinine 2.0 (baseline 1.0�1.1)
Elevated troponin, likely non-AK injury
� Likely related to volume overload, elevated creatinine
� Single episode of chest/epigastric discomfort not associated with activity or exertion; no subsequent episode
Mild-Moderate aortic stenosis
Elevated D-dimer
� Lower extremity ultrasound negative
� VQ scan unremarkable
Hypertension
Diabetes mellitus type 2
Aortic stenosis, moderate
Dyslipidemia
Ovarian cancer status post chemotherapy
Echo 05/20/2025: EF 59%, moderate peak/mean 33/18 mmHg, GLS -19.9%, normal RV size and function, mild to moderate MR
Lexiscan MPI, 07/07/2017: anterior/apical fixed defect consistent with soft tissue attenuation, EF 74%, no ischemia noted.
Recommendation:
With diuresis, weight is down approximately 5 pounds from admission and it looks like urine output has not been accurately recorded
Nephrology is following and managing diuretics, recommendation is to continue IV Lasix today and likely switch to oral Lasix tomorrow.
We will obtain echocardiogram in the morning
troponin value initially 0.039 and then 0.033 with no chest pain and normal ECG. No further ischemic evaluation is indicated at this time.
Primary service managing anemia with plan for transfusion if hemoglobin is less than 7.
Discussed with patient at bedside. All of her questions answered.
Total time spent today was 50 minutes in preparing to see the patient, seeing the patient and coordination of care. This included review of recent laboratory evaluations, cardiact testing, imaging studies, primary care rtecords, specialty
consultations, hospital records, as well as personally interviewing and examining the patient, which included discussion of their tests, review/ordering medications, and communicating with other healthcare professionals and also treatment planning
as well as counseling.
Total time does not include separately billed tests performed on this date of service.
Progress Note - Compliance Advisor
Subjective
Date of Service: September 04, 2025
She tells me her breathing is much better and she points to both the diuresis and the packed red blood cell transfusion as helping her breathing.
Objective
Labs:
09/04/25:25
09/04/25
Labs
Hgb 7.5 g/dL (12.0-16.0) L 09/04/25:
Hct 22.9 % (37.0-47.0) L 09/04/25:
Plt Count 109 10^3/uL (130-400) L 09/04/25:
Sodium 136 mmol/L (135-145) 09/04/25:
Potassium 4.1 mmol/L (3.5-5.1) 09/04/25:
BUN 83 mg/dl (7-17) H 09/04/25:
Creatinine 2.3 mg/dL (0.6-1.0) H 09/04/25:
Glucose 109 mg/dl (70-99) H 09/04/25:
Troponins
09/02/25 09/02/25
12:44 15:20
Troponin I 0.039 H* 0.033
Vital Signs and I&O:
Vital Signs
Temp Pulse Resp BP Pulse Ox
97.9 F 71 18 136/54 97
09/04/25 13:28 09/04/25 13:28 09/04/25 13:28 09/04/25 13:28 09/04/25 11:00
Vital Signs
Temp Pulse Resp BP Pulse Ox
97.9 F 71 18 136/54 97
09/04/25 13:28 09/04/25 13:28 09/04/25 13:28 09/04/25 13:28 09/04/25 11:00
Intake & Output
09/02/25 09/03/25 09/04/25 09/05/25
06:59 06:59 06:59 06:59
Intake Total 480 / 480 1440 / 1440 720 / 720
Balance 480 / 480 1440 / 1440 720 / 720
Physical Exam
Physical Exam
CARDIAC: Regular rate and rhythm, +S1/S2, 2/6 systolic ejection murmur RUSB; no rubs, or gallops
CHEST/PULMONARY: Normal effort, bibasilar crackles
ABDOMEN: Soft, without focal tenderness or distention
NEUROLOGICAL: Alert and oriented x3
SKIN: Warm and dry, no rash; bilateral 1+ edema lower EXTR
PSYCH: Normal and appropriate interaction.
--- NOTE | 2025-09-04 14:09 | CM ---
Patient seen at bedside
IA completed
per note - Continue IV Lasix for diuresis can probably switch to po tomorrow
Dx: CHF, JEREMÍAS
PMH: ovarian cancer, on chemo, Anemia, Diabetes mellitus type 2, HTN
Lives in 1 story home with son, 2 KASHIF
PLOF: Independent, uses rollator
DME: Rollator, cane
Has had VN in past, outpatient PT in past
PCP: Lien Hahn
Pharmacy: [facility]
PLAN: home, CM to follow for VN needs
[2025-09-04] MEDS: LASIX 20 MG IV (15:55)
--- NOTE | 2025-09-04 16:44 | W.PN.HOSP.TC ---
Today's Communication/Plan
-
Continue IV Lasix
Blood transfusion
Possible discharge Friday
Assessment / Plan
Assessment / Plan
74F with DM, HTN, HLD, ovarian cancer, p/w several weeks of shortness of breath.
Acute Hypoxic Respiratory Insufficiency
Suspect secondary to CHF see below
Elevated D-dimer, given patient has ovarian cancer, wanted to rule out PE.
V/Q with low probability for PE
Lower extremity Dopplers negative for DVT
Wean off oxygen as able
Acute Heart Failure with Preserved EF
-Echo May 2025: Left ventricular ejection fraction 59%. Moderate aortic stenosis. Stage II diastolic dysfunction.
-Consulted Cardiology
Troponin level peaked at 0.039
Continue IV Lasix
Repeat echo pending
TSH barely elevated 4.85, free T4 is WNL
laboratory monitor, trend weight, strict I's and O's
Acute Kidney Injury on CKD III
-Patient reports baseline Cr ~1.1, up to 2 on admit
-Consulted Nephrology
-Monitor creatinine closely following dose of diuretics
Non-anion gap metabolic acidosis
Bicarb 15-->21
urine ketones negative. serum ketones ordered and pending. nephrology following
symptomatic Acute on chronic Anemia
-Patient reports baseline Cr ~10
-Patient denies black stools
-Hemetest stools ordered and pending, discussed with RN
-Check iron, ferritin, TIBC, folate, vit b12, ordered but do not see result, will reorder
-Trend Hgb, dropped to 6.9, improved to 7.5, but given she is still symptomatic have discussed with patient we will proceed with transfusion 1 unit with additional Lasix 20 mg IV.
Diabetes Mellitus, Type II
-Patient is no longer on medications following weight loss
-Hgb A1c 5.4%
Essential Hypertension
-Continue amlodipine, hydralazine and metoprolol
BP controlled
Hyperlipidemia
-Continue simvastatin
Ovarian Cancer
s/p ROXANE/BSO and Chemotherapy
-Last chemotherapy in Apr 2025
DVT PPx
SC Heparin
Anticipated Discharge: 24 - 48 hours
Subjective/Interval History
-
Date of Service: September 04, 2025
Patient states she was feeling a little bit better in terms of her shortness of breath.
Objective Data
-
Labs:
Laboratory Results
09/04/25
09:25
Hgb 7.5 L
Hct 22.9 L
Vital Signs:
Vital Signs
Temp Pulse Resp BP Pulse Ox
97.9 F 70 18 134/59 97
09/04/25 15:59 09/04/25 15:59 09/04/25 15:59 09/04/25 15:59 09/04/25 11:00
I&O
09/03/25 09/04/25 09/05/25
06:59 06:59 06:59
Intake Total 480 / 480 1440 / 1440 970 / 970
Balance 480 / 480 1440 / 1440 970 / 970
Review of Systems
-
History Source: Patient
All other systems: Reviewed and negative
Physical Exam
-
General: No Apparent Distress
HEENT: Moist Mucous Membranes, Anicteric and PERRLA
Respiratory: Clear to Auscultation; Negative Wheezes, Rales or Rhonchi
Cardiac: Regular Rhythm and S1/S2; Negative Murmur, Rub or Gallop
GI: Soft, Nontender, Nondistended and Normal Bowel Sounds
Musculoskeletal: No Edema
Skin: Warm and Dry; Negative Rash, Ulcers or Lesions
Neuro: Awake and AO x 3
Hematologic / Lymphatic: No Lymphadenopathy
Psych: Calm
Data Reviewed
-
Diagnostic Radiology: Report Reviewed by me and Discussed with Patient
Medical Tests (Nuc Med, Echo etc): Report Reviewed by me and Discussed with Patient
Labs: Labs Reviewed by me and Discussed with Patient
Old Records: Reviewed
--- NOTE | 2025-09-04 18:07 | PTCARENOTE ---
Patient ordered one unit of blood for Hbg 7.5. Tolerated transfusion well, no adverse reactions. VSS. Labs ordered for A.M. Denies pain/discomfort/S.O.B. Pt states feeling ' much better than Friday'. Call higgins within reach.
[2025-09-04] MEDS: LIPITOR 10 MG PO (21:04)
[2025-09-04] MEDS: AMBIEN 5 MG PO (21:04)
[2025-09-04] MEDS: TOPROL XL 50 MG PO (21:04)
[2025-09-05] VITALS (10 sets, daily range): BP systolic 124–147; BP diastolic 49–63; PULSE 78; O2SAT 95; BMI 33.6
[2025-09-05 04:42] LABS: Hematocrit 23.7 % (37.0-47.0); Hemoglobin 7.9 g/dL (12.0-16.0); Mean Corp Hgb Conc. 33.3 g/dL (33.0-37.0); Mean Corpuscular Volume 92.2 fL (81.0-99.0); Platelet Count 115 10^3/uL (130-400); Red Cell Dist. Width 17.8 % (11.5-14.5)
[2025-09-05 05:01] LABS: Blood Urea Nitrogen 87 mg/dl (7-17); Calcium 8.3 mg/dl (8.4-10.2); Carbon Dioxide 22 mmol/L (22-30); Chloride 105 mmol/L (98-107); Estimated Creatinine Clearance 23 ml/min; Glucose 113 mg/dl (70-99); Potassium 4.0 mmol/L (3.5-5.1); Sodium 136 mmol/L (135-145); eGFR 22.95
[2025-09-05] MEDS: APRESOLINE 50 MG PO ×2 (08:05→19:35)
[2025-09-05] MEDS: HEPARIN 5000 UNITS SC ×3 (08:06→23:02)
[2025-09-05] MEDS: NORVASC 10 MG PO (08:08)
--- NOTE | 2025-09-05 08:25 | W.PN.HOSP.TC ---
Today's Communication/Plan
-
Switch to oral Lasix tomorrow.
Monitor kidney function.
Monitor hemoglobin.
Physical therapy consult
Assessment / Plan
Assessment / Plan
Impression:
74F with DM, HTN, HLD, ovarian cancer, p/w several weeks of shortness of breath.
Assessment and plan:
Acute Hypoxic Respiratory failure
Suspected secondary to CHF (see below)
Elevated D-dimer; given history of ovarian cancer, PE was ruled out
V/Q scan: Low probability for PE
Lower extremity Dopplers: Negative for DVT
Weaned off oxygen, now on room air
Acute Heart Failure with Preserved EF
Echo (May 2025): LVEF 59%, moderate aortic stenosis, Stage II diastolic dysfunction
Cardiology consulted
Troponin peaked at 0.039
Continue IV Lasix
Repeat echo pending
TSH mildly elevated at 4.85; free T4 WNL
Telemetry monitoring, trend weight, strict I&O
Acute Kidney Injury on CKD III
Baseline Cr ~1.1; increased to 2 on admission
Nephrology consulted
Monitor creatinine closely, especially after diuretics
Non-Anion Gap Metabolic Acidosis
Bicarbonate improved.
Nephrology following
Symptomatic Acute on Chronic Anemia
Patient reports baseline Hgb ~10
Denies black stools
Hematest stools ordered and pending
Iron studies (iron, ferritin, TIBC), folate, vitamin B12 ordered; will reorder if results not available
Trend Hgb: Dropped to 6.9, improved to 7.5-->7.9
S/P Transfusion of 1 unit PRBC with additional Lasix 20 mg IV
Diabetes Mellitus, Type II
No longer on medications after weight loss
Hgb A1c: 5.4%
Essential Hypertension
Continue amlodipine, hydralazine, and metoprolol
BP controlled
Hyperlipidemia
Continue simvastatin
Ovarian Cancer
s/p ROXANE/BSO and chemotherapy
Last chemotherapy: Apr 2025
DVT Prophylaxis
SC Heparin
CODE STATUS: Full code
Diet: cardiac diet
Physical therapy recommendations: Pending
Disposition: Switch to oral Lasix tomorrow.
Total time spent on today's encounter was 55 minutes which included time spent in counseling the patient/family regarding diagnosis and treatment plan as listed above, goals of care, and symptom management. Case was discussed with nursing staff,
specialists, and care coordinators/case management. All labs and imaging personally reviewed by me. Remainder the time spent in detailed review of previous records, lab data, imaging, and other medical provider documentation.
Part of this note was created using voice recognition system. Occasional wrong word or �sound alike� substitutions may have inadvertently occurred due to the inherent limitations of voice recognition software. If noted kindly bring it to my
attention for correction.
Anticipated Discharge: 24 - 48 hours
Subjective/Interval History
-
Date of Service: September 05, 2025
Patient seen and examined at bedside, denies any chest pain , shortness of breath Improved, no abdominal pain, no nausea, no vomiting, no diarrhea or constipation.
.
Objective Data
-
Labs:
Laboratory Results
09/05/25 09/05/25
04:14 04:15
WBC 5.0
Hgb 7.9 L
Hct 23.7 L
Plt Count 115 L
Sodium 136
Potassium 4.0
Chloride 105
Carbon Dioxide 22
BUN 87 H
Creatinine 2.2 H
Glucose 113 H
Calcium 8.3 L
Vital Signs:
Vital Signs
Temp Pulse Resp BP Pulse Ox
97.8 F 66 17 139/56 99
09/05/25 07:35 09/05/25 07:35 09/05/25 07:35 09/05/25 07:35 09/05/25 07:35
I&O
09/04/25 09/05/25 09/06/25
06:59 06:59 06:59
Intake Total 1440 / 1440 1450 / 1450
Output Total 1500 / 1500
Balance 1440 / 1440 -50 / -50
Physical Exam
-
General: Well Developed, Well Nourished, No Apparent Distress and Comfortable
HEENT: Normocephalic, Atraumatic, Moist Mucous Membranes, No Ptosis, PERRLA and Nose Appears Normal
Respiratory: Rales, Rhonchi, Crackles and Non Labored Respirations
Cardiac: Regular Rhythm and S1/S2
Breast: Deferred by me
GI: Soft, Nontender, Nondistended and Normal Bowel Sounds
Genito-urinary: No Costovertebral Tender
Musculoskeletal: No Clubbing, No Cyanosis and No Edema
Skin: Warm
Neuro: Awake, Alert, Oriented, AO x 3 and No Motor Deficits
Psych: Calm
Data Reviewed
-
Diagnostic Radiology: Image personally visualized and interpreted and Report Reviewed by me
CT Scan: Image personally visualized and interpreted and Report Reviewed by me
Ultrasound: Image personally visualized and interpreted and Report Reviewed by me
MRI: Image personally visualized and interpreted and Report Reviewed by me
Medical Tests (Nuc Med, Echo etc): Image personally visualized and interpreted and Report Reviewed by me
Labs: Labs Reviewed by me
Old Records: Reviewed
--- NOTE | 2025-09-05 09:45 | W.PN.CARDCBS ---
Addendum entered and electronically signed by Westley Spain MD 09/05/25 13:12:
I saw and examined the patient.
The INVESTMENT UNDERWRITER or PA's note was reviewed and I agree with the note.
Comment: General: Well developed, well nourished in NAD.
Neck: Supple, no JVD, HJR, carotids +2 B/L, no bruits bilaterally.
Heart: Non displaced PMI, RRR, no murmurs, No S3, S4, no rubs.
Lungs: scattered rhonchi
Extremities: No clubbing, cyanosis or edema bilaterally.
Neuro: Grossly nonfocal, awake, alert and oriented x3.
Stable cardiology status for discharge if echocardiogram okay. Nephrology managing diuretics. Will sign off if echocardiogram is okay.
Original Note:
Today's Communication / Plan
-
Echo today
Await input from nephrology regarding additional diuresis but would consider transitioning back to oral Lasix in a.m. pending renal function.
Continue amlodipine, hydralazine and metoprolol for blood pressure
Ongoing workup for anemia inpatient and outpatient, follows with Dr. Doyle
Impression / Plan
-
PCP: Dr. Lien Hahn
Binder And Box Builder: Dr Justina Oliva
Impression:
Presented 09/02/2025 with worsening lower extremity edema and shortness of breath
Acute hypoxic respiratory insufficiency, multifactorial
Acute on chronic heart failure with preserved ejection fraction, proBNP 7440
JEREMÍAS, creatinine 2.0 (baseline 1.0�1.1)
Elevated troponin, nonischemic myocardial injury
Acute anemia
Elevated D-dimer
Mild-Moderate aortic stenosis
Hypertension
Diabetes mellitus type 2
Aortic stenosis, moderate
Dyslipidemia
Ovarian cancer status post chemotherapy Avastin last dose April 2025
Echo 09/05/2025: ordered
Echo 05/20/2025: EF 59%, moderate peak/mean 33/18 mmHg, GLS -19.9%, normal RV size and function, mild to moderate MR
Lexiscan MPI, 07/07/2017: anterior/apical fixed defect consistent with soft tissue attenuation, EF 74%, no ischemia noted.
Plan:
Presented 09/02/2025 with worsening lower extremity edema and shortness of breath. Likely multifactorial secondary to acute heart failure exacerbation, proBNP 7440 and acute on chronic anemia
Acute on chronic heart failure with preserved ejection fraction
� Imaging with chest x-ray c/w acute HF and elevated BNP 7440
- Creatinine elevated at 2.0 on admission, peaked 2.3, now 2.2. Prior baseline appears to be around 1.0-1.1 prior to chemo
- Nephrology following. Patient was given 40 mg IV Lasix 09/03 and 20 mg IV Lasix 09/04. Hold on IV Lasix now and consider transitioning to oral Lasix in am
- Weight down 5 to 7 pounds since admission
� Was on Lasix 20 mg daily as outpt
Elevated troponin, nonischemic myocardial injury
-Peaked at 0.039 on admission and then trended downward.
- Suspect nonischemic myocardial injury secondary to acute heart failure and JEREMÍAS as well as anemia
-No further ischemic evaluation is indicated at this time.
- Check echocardiogram
Acute anemia
� Patient's hemoglobin previously documented 11�12, initial admission 8.6 and has trended downward as low as 6.9 and very likely contributing to shortness of breath
-Undergoing chemo treatment for ovarian cancer which may be impacting hemoglobin.
-Transfused 1 unit of blood 09/04/2025
-Hemoglobin 7.9.
-Ongoing workup per primary service
- Does follow with Dr. Doyle as outpatient. They were considering bone marrow biopsy per patient
Elevated D-dimer
� Lower extremity ultrasound negative
� VQ scan unremarkable
HPI 09/03/2025:
Patient is a very pleasant 74-year-old female with a past medical history significant for hypertension, hyperlipidemia, diabetes mellitus type 2, moderate aortic stenosis, mild to moderate mitral regurgitation, heart failure with preserved ejection
fraction, ovarian cancer status post chemotherapy (last dose April) who presents due to worsening lower extremity swelling, shortness of breath. In discussion with patient, she reports increasing shortness of breath with activity and exertion over
the last few weeks. She states that initially it was mild however over the past few days it has become more significant additionally, she had reported increasing lower extremity swelling over the last few days as well as orthopnea requiring her to
sleep in a recliner/chair to help with breathing. She denies any lightheadedness, dizziness, near-syncope, syncope, palpitations, PND, or weakness. She did state that she had ate single episode of epigastric/lower chest tightness while on her way
to the emergency department which lasted a couple minutes in duration without aggravating or alleviating factors. She reported no other chest discomfort or pain at rest or with activity or exertion. Patient is a non-smoker, no alcohol, no
illicits. Of note, she had called the office for outpatient documentation the beginning of August with increasing weight over 10 pounds in over 2 weeks Lasix 20 mg daily was then started. Prior to this, she was on Lasix 40 mg twice daily
alternating twice weekly with 60 mg twice daily. This has been discussed continued by oncology due to dehydration. On presentation to the emergency department, patient was noted to have elevated creatinine of 2.0 which is off her baseline of 1.0
at last check. Additionally, troponin was initially 0.039 which downtrended to 0.33. BNP was noted to be 7440 and D-dimer was elevated greater than 2. Patient underwent lower extremity Doppler and VQ scan both of which were unremarkable. Initial
EKG demonstrated sinus rhythm without significant ST-T abnormality and no significant change from 2016. Chest x-ray showed pleural effusions.
Progress Note - Binder And Box Builder
Subjective
Date of Service: September 05, 2025
Patient seen and examined. Symptomatically patient reports she is feeling considerably better. Less short of breath and has been weaned off oxygen
Objective
Labs:
09/05/25 04:15
09/05/25 04:14
Labs
Hgb 7.9 g/dL (12.0-16.0) L 09/05/25 04:15
Hct 23.7 % (37.0-47.0) L 09/05/25 04:15
Plt Count 115 10^3/uL (130-400) L 09/05/25 04:15
Sodium 136 mmol/L (135-145) 09/05/25 04:14
Potassium 4.0 mmol/L (3.5-5.1) 09/05/25 04:14
BUN 87 mg/dl (7-17) H 09/05/25 04:14
Creatinine 2.2 mg/dL (0.6-1.0) H 09/05/25 04:14
Glucose 113 mg/dl (70-99) H 09/05/25 04:14
Troponins
09/02/25 09/02/25
12:44 15:20
Troponin I 0.039 H* 0.033
Vital Signs and I&O:
Vital Signs
Temp Pulse Resp BP Pulse Ox
97.8 F 66 17 139/56 99
09/05/25 07:35 09/05/25 07:35 09/05/25 07:35 09/05/25 07:35 09/05/25 07:35
Vital Signs
Temp Pulse Resp BP Pulse Ox
97.8 F 66 17 139/56 99
09/05/25 07:35 09/05/25 07:35 09/05/25 07:35 09/05/25 07:35 09/05/25 07:35
Intake & Output
09/03/25 09/04/25 09/05/25 09/06/25
06:59 06:59 06:59 06:59
Intake Total 480 / 480 1440 / 1440 1450 / 1450
Output Total 1500 / 1500
Balance 480 / 480 1440 / 1440 -50 / -50
Physical Exam
Physical Exam
GEN: No distress, awake, Ox3, sitting in bed, on room air
HEENT: supple, anicteric, mmm
LUNGS: CTA, no wheezes/rales
CV: Reg, S1/S2, 2/6 syst murmur
ABD: soft, BS+, NT/ND
EXT: No edema, clubbing or cyanosis
NEURO: Gross non-focal
SKIN: No rash
--- NOTE | 2025-09-05 11:52 | W.PN.NEPH.PH ---
Today's Communication / Plan
-
Okay with p.o. Lasix with stable creatinine pending echo
Assessment/Plan
-
Assessment
Decompensated heart failure preserved ejection fraction
JEREMÍAS, progressive kidney decline
Ovarian cancer on chemotherapy
Anemia
Diabetes mellitus type 2
Hypertension
Plan
Follow BMP
Okay with p.o. Lasix as creatinine stabilized
Echo pending
Acuity multifactorial > cardiorenal versus medication > Avastin
-
-
Date of Service: September 05, 2025
CC / HPI / ROS
-
Chief Complaint:
JEREMÍAS
History of Present Illness:
JEREMÍAS/Cr up to 2.3
acidosis better
weights down
still on O2
Review of Systems:
no CP/
minimal SOB
Labs
-
Labs:
WBC 5.0 10^3/uL (4.8-10.8) 09/05/25 04:15
RBC 2.57 10^6/uL (4.20-5.40) L 09/05/25 04:15
Hgb 7.9 g/dL (12.0-16.0) L 09/05/25 04:15
Hct 23.7 % (37.0-47.0) L 09/05/25 04:15
Plt Count 115 10^3/uL (130-400) L 09/05/25 04:15
Sodium 136 mmol/L (135-145) 09/05/25 04:14
Potassium 4.0 mmol/L (3.5-5.1) 09/05/25 04:14
Chloride 105 mmol/L (98-107) 09/05/25 04:14
Carbon Dioxide 22 mmol/L (22-30) 09/05/25 04:14
BUN 87 mg/dl (7-17) H 09/05/25 04:14
Creatinine 2.2 mg/dL (0.6-1.0) H 09/05/25 04:14
eGFR 22.95 09/05/25 04:14
Glucose 113 mg/dl (70-99) H 09/05/25 04:14
Calcium 8.3 mg/dl (8.4-10.2) L 09/05/25 04:14
Skb-B-Qlpojzglgjg Pept 7440 pg/ml 09/02/25 15:20
Albumin 3.9 g/dl (3.5-5.0) 09/02/25 12:44
Physical Exam
-
Vital Signs:
Vital Signs
Temp Pulse Resp BP Pulse Ox
98.4 F 76 16 125/56 95
09/05/25 11:32 09/05/25 11:32 09/05/25 11:32 09/05/25 11:32 09/05/25 11:32
Cardiovascular:: Regular rate and rhythm
Respiratory:: Bilateral: Coarse
Lung Excursion:: Normal
Abdomen:: Nontender and Soft
Bowel Sounds:: Normal
Extremity Edema:: None: Bilateral:
--- NOTE | 2025-09-05 14:15 | W.PN.UPDATE ---
Update Note
Progress Note Update
Echocardiogram unchanged. Will sign off.
--- NOTE | 2025-09-05 15:47 | PTOTSP ---
Pt is able to get OOB and ambulate in hallway without an assistive device and is able to climb the steps to get into her house. No acute PT needs were identified. Pt can ambulate independently in her room here. PT will sign off.
--- NOTE | 2025-09-05 15:51 | CON.ONC ---
Consultation
-
Date Consultation Requested: 09/05/25
Date Consultation Performed: 09/05/25
Requesting Provider: Dr. Pavel Murphy
Performing Provider: Dr. Carrie Doyle
Reason for Consultation: anemia, ovarian cancer
Impression
Impression
recurrent ovarian cancer, initial dx 2008, last tx April 2025 with most recent PET that showed a positive response to therapy
acute on chronic anemia with elevated ESR, ferritin, positive BARTOLO speckled pattern, and mild elevation in retic 3.4. SPEP polyclonal, elev in K &L with normal ratio c/w inflammation/renal disease
mild thrombocytopenia. no B12 or folate deficiency
JEREMÍAS on CKD
HFpEF
Plan
Plan
check heme stool
check LDH, haptoglobin, JORGE
check PTT, PT, INR, fibrinogen, lupus anticoagulant
check DS DNA
f/u liquid neotype panel done in office 09/01, results still pending
cardiology an nephrology following
Patient History
History of Present Illness
74yo F who presented to with cough and SOB. She reports worsening lower extremity edema, SOB, and GILL that was progressive over the past several weeks. Her SOB was worse in supine and felt better sleeping upright in a chair. Her LE US was
negative for DVT and her VQ scan showed low probability of pulmonary emboli. Her BNP was elevated and she was started on 2L NC. Her Hgb was 8.6 (recent baseline) on admission and trended to 6.9g/dL on 09/04. She has also developed mild
thrombocytopenia wit a platelet count 115,000. She was admitted and started on diuretics. She received 1U PRBC 09/04 with improvement of Hgb to >8g/dL. She denies overt bleeding.
She had been known to Dr. Ascencio since 2008 and now followed by Dr. Doyle for her ovarian cancer. She underwent curative ROXANE/SBO in 2008 followed by carbo/taxol/avastin then maintenance Avastin. She showed recurrence on surveillance and underwent
resection of peritoneal implants and omentectomy in 2016 followed by taxol/cisplatin. 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 She again showed recurrence on her Sep 2021 imaging with liver lesions and peritoneal
deposits and treated with carbo/gemcitabine. Her carbo required desensitization protocol. She was on palliative niraparib from March 2022-February 2024. She was treated with 4th line treatment Doxil Avastin followed by maintenance Avastin that completed
April 2025 with most recent PET August 2025 that showed dpositive response to treatment with only single FDG avid LN in the right external iliac region.
Afebrile, no hypoxia or hypotension today.
Past-Medical/Surgical History
PMH DM2, HTN, AF, CHF, HLD, CONSUELO, CIPN, aortic stenosis
PSH: Total�Abdominal�Hysterectomy/Bilateral�Salpingo�Oophorectomy.�Knee�and/or�Hip�surgery. Jaw repair. right arm ORIF, hernia repair
social non-smoker, denies ETOH or recreational drugs. Retired
Patient Medication
�Medication �Instructions �Recorded �Confirmed �Last Taken �Type
amlodipine 10 mg tablet (Norvasc) 10 mg PO DAILY Blood Pressure 09/02/25 09/02/25 09/02/25 History
cholecalciferol (vitamin D3) 25 25 mcg PO DAILY Supplement 09/02/25 09/02/25 09/02/25 History
mcg (1,000 unit) chewable tablet
(Vitamin D3)
cyanocobalamin (vitamin B-12) 1,000 mcg PO DAILY Supplement 09/02/25 09/02/25 09/02/25 History
1,000 mcg tablet
furosemide 20 mg tablet (Lasix) 20 mg PO DAILY Fluid 09/02/25 09/02/25 09/02/25 History
Retention/Swelling
hydralazine 50 mg tablet 50 mg PO BID Blood Pressure 09/02/25 09/02/25 09/02/25 History
metoprolol succinate 50 mg 50 mg PO HS Heart Disease/Condition 09/02/25 09/02/25 09/01/25 History
tablet,extended release 24 hr
(Toprol XL)
simvastatin 20 mg tablet (Zocor) 20 mg PO HS High Cholesterol 09/02/25 09/02/25 09/01/25 History
therapeutic multivitamin 1 tab PO DAILY Supplement 09/02/25 09/02/25 09/02/25 History
zolpidem 5 mg tablet (Ambien) 5 mg PO HS Sleep 09/02/25 09/02/25 09/01/25 History
Active Medications
Generic Name Dose Route Start Last Admin
Trade Name Freq PRN Reason Stop Dose Admin
Amlodipine Besylate 10 mg 09/03/25 08:00 09/05/25 08:08
Amlodipine 10 Mg Tablet PO 10/01/25 07:59 10 mg
DAILY WILY Administration
Atorvastatin Calcium 10 mg 09/02/25 22:00 09/04/25 21:04
Atorvastatin (Lipitor) 10 Mg Tablet PO 09/30/25 21:59 10 mg
HS WILY Administration
Heparin Sodium 5,000 units 09/03/25 00:00 09/05/25 08:06
Heparin 5,000 Units/Ml 1 Ml Vial SC 10/01/25 00:00 5,000 units
Q8 WILY Administration
Heparin Sodium (Porcine) 500 unit 09/02/25 16:15 09/05/25 04:30
Heparin Flush Pf (100 Unit/Ml) 5 Ml Syringe IV 09/30/25 16:14 500 unit
PER PROTOCOL WILY Administration
Hydralazine HCl 50 mg 09/02/25 21:00 09/05/25 08:05
Hydralazine 50 Mg Tablet PO 09/30/25 20:59 50 mg
BID WILY Administration
Metoprolol Succinate 50 mg 09/02/25 22:00 09/04/25 21:04
Metoprolol 50 Mg Extended Release Tablet PO 09/30/25 21:59 50 mg
HS WILY Administration
Sodium Chloride 2 sprays 09/03/25 04:05
Sodium Chloride 0.65% Nasal [place] 45 Ml Bottle NASAL 10/01/25 04:04
QIDPRN PRN
dry nose/congestion
Sodium Chloride 0 flush 09/03/25 05:00
Sodium Chloride 0.9% (Flush) Syringe IV 10/01/25 04:59
PER PROTOCOL WILY
Zolpidem Tartrate 5 mg 09/02/25 22:00 09/04/25 21:04
Zolpidem Tartrate 5 Mg Tablet PO 09/30/25 21:59 5 mg
HS WILY Administration
Review of Systems
-
ROS is notable for HPI, otherwise negative
Physical Exam
-
General: No Apparent Distress
HEENT: Negative Jaundice
Cardiology: Normal Sinus Rhythm and Murmur (systolic)
Pulmonary: Other (diminished right base)
GI: Soft
Extremities: Pulses Present
Neurology: Non Focal
Skin: Warm
Psych: Calm
Labs
Lab Results
WBC 5.0 10^3/uL (4.8-10.8) 09/05/25 04:15
RBC 2.57 10^6/uL (4.20-5.40) L 09/05/25 04:15
Hgb 7.9 g/dL (12.0-16.0) L 09/05/25 04:15
Hct 23.7 % (37.0-47.0) L 09/05/25 04:15
MCV 92.2 fL (81.0-99.0) 09/05/25 04:15
MCH 30.7 pg (27.0-31.0) 09/05/25 04:15
MCHC 33.3 g/dL (33.0-37.0) 09/05/25 04:15
RDW 17.8 % (11.5-14.5) H 09/05/25 04:15
Plt Count 115 10^3/uL (130-400) L 09/05/25 04:15
MPV 10.4 fL (7.4-10.4) 09/05/25 04:15
Abs Immat Gran (auto) 0.1 10^3/uL (0-0.05) H 09/02/25 12:44
Absolute Neuts (auto) 5.4 10^3/uL (1.4-6.5) 09/02/25 12:44
Absolute Lymphs (auto) 0.9 10^3/uL (1.2-3.4) L 09/02/25 12:44
Absolute Monos (auto) 0.6 10^3/uL (0.1-0.6) 09/02/25 12:44
Absolute Eos (auto) 0.2 10^3/uL (0-0.7) 09/02/25 12:44
Absolute Basos (auto) 0.0 10^3/uL (0-0.2) 09/02/25 12:44
Immature Gran % 1.1 % (0-0.5) H 09/02/25 12:44
Neutrophils % 75.6 % (42.2-75.2) H 09/02/25 12:44
Lymphocytes % 12.2 % (20.5-51.1) L 09/02/25 12:44
Monocytes % 8.6 % (1.7-9.3) 09/02/25 12:44
Eosinophils % 2.1 % (0-6) 09/02/25 12:44
Basophils % 0.4 % (0-2) 09/02/25 12:44
Creatinine 2.2 mg/dL (0.6-1.0) H 09/05/25 04:14
Vital Signs
Vital Signs
Temp Pulse Resp BP Pulse Ox
98.7 F 78 20 133/49 94
09/05/25 15:48 09/05/25 15:48 09/05/25 15:48 09/05/25 15:48 09/05/25 15:48
[2025-09-05 16:36] LABS: LDH 232 U/L (120-246)
[2025-09-05 16:47] LABS: Reticulocyte Count 3.2 % (0.4-2.8)
[2025-09-05] MEDS: AMBIEN 5 MG PO (21:05)
[2025-09-05] MEDS: LIPITOR 10 MG PO (21:05)
[2025-09-05] MEDS: TOPROL XL 50 MG PO (21:06)
[2025-09-06 03:00] VITALS: BP 143/57
[2025-09-06 03:46] VITALS: BMI 33.8
[2025-09-06 05:10] LABS: Hematocrit 27.1 % (37.0-47.0); Hemoglobin 9.3 g/dL (12.0-16.0); Mean Corp Hgb Conc. 34.3 g/dL (33.0-37.0); Mean Corpuscular Volume 91.2 fL (81.0-99.0); Platelet Count 121 10^3/uL (130-400); Red Cell Dist. Width 17.9 % (11.5-14.5)
[2025-09-06 05:29] LABS: INR 1.08; PT 14.1 Sec (11.4-14.6)
[2025-09-06 05:30] LABS: APTT 34.3 Sec (23.4-35.0); Fibrinogen 401 MG/DL (199-459)
[2025-09-06 05:43] LABS: Blood Urea Nitrogen 77 mg/dl (7-17); Calcium 8.5 mg/dl (8.4-10.2); Carbon Dioxide 23 mmol/L (22-30); Chloride 105 mmol/L (98-107); Estimated Creatinine Clearance 26 ml/min; Glucose 112 mg/dl (70-99); Potassium 3.9 mmol/L (3.5-5.1); Sodium 136 mmol/L (135-145); eGFR 25.73
[2025-09-06 07:00] VITALS: BP 135/65
[2025-09-06 07:48] VITALS: BP 135/65
[2025-09-06] MEDS: NORVASC 10 MG PO (07:53)
[2025-09-06] MEDS: APRESOLINE 50 MG PO (07:53)
[2025-09-06] MEDS: HEPARIN 5000 UNITS SC (07:54)
[2025-09-06 11:00] VITALS: BP 146/61
--- NOTE | 2025-09-06 11:11 | W.PN.HOSP.TC ---
Today's Communication/Plan
-
Discharge home today
Assessment / Plan
Assessment / Plan
Impression:
74F with DM, HTN, HLD, ovarian cancer, p/w several weeks of shortness of breath.
Started on IV Lasix, seen by both nephrology and cardiology.
Echocardiogram done showed
1. Left ventricular ejection fraction is normal with an ejection fraction of 60 % by Ríos's biplane method of discs.
2. Compared to a prior transthoracic echocardiogram study from May 2025 There is no significant change. Global strain is decreased slightly from -19.9 % to -16.9%.
3. Global strain -16.9%.
4. Mild to moderate aortic stenosis with mean pressure gradient of 19 mmHg. Aortic valve area not determined due to limited Doppler data.
Cardiology signed off, okay with oral Lasix
Also seen by oncology, patient status post blood transfusion for anemia
Assessment and plan:
Acute Hypoxic Respiratory failure
Suspected secondary to CHF (see below)
Elevated D-dimer; given history of ovarian cancer, PE was ruled out
V/Q scan: Low probability for PE
Lower extremity Dopplers: Negative for DVT
Weaned off oxygen, now on room air
Acute Heart Failure with Preserved EF
Echo (May 2025): LVEF 59%, moderate aortic stenosis, Stage II diastolic dysfunction
Cardiology consulted
Troponin peaked at 0.039
Continue IV Lasix
Repeat Echocardiogram done showed Left ventricular ejection fraction is normal with an ejection fraction of 60 %
TSH mildly elevated at 4.85; free T4 WNL
Telemetry monitoring, trend weight, strict I&O
Acute Kidney Injury on CKD III
Baseline Cr ~1.1; increased to 2 on admission
Nephrology consulted
Monitor creatinine closely, especially after diuretics
Non-Anion Gap Metabolic Acidosis
Bicarbonate improved.
Nephrology following
Symptomatic Acute on Chronic Anemia
Patient reports baseline Hgb ~10
Denies black stools
Hematest stools ordered and pending
Iron studies (iron, ferritin, TIBC), folate, vitamin B12 ordered; will reorder if results not available
Trend Hgb: Dropped to 6.9, improved to 7.5-->7.9
S/P Transfusion of 1 unit PRBC with additional Lasix 20 mg IV
Diabetes Mellitus, Type II
No longer on medications after weight loss
Hgb A1c: 5.4%
Essential Hypertension
Continue amlodipine, hydralazine, and metoprolol
BP controlled
Hyperlipidemia
Continue simvastatin
Ovarian Cancer
s/p ROXANE/BSO and chemotherapy
Last chemotherapy: Apr 2025
DVT Prophylaxis
SC Heparin
CODE STATUS: Full code
Diet: cardiac diet
Physical therapy recommendations: Home PT
Disposition: Discharge home today
Total time spent on today's encounter was 55 minutes which included time spent in counseling the patient/family regarding diagnosis and treatment plan as listed above, goals of care, and symptom management. Case was discussed with nursing staff,
specialists, and care coordinators/case management. All labs and imaging personally reviewed by me. Remainder the time spent in detailed review of previous records, lab data, imaging, and other medical provider documentation.
Part of this note was created using voice recognition system. Occasional wrong word or �sound alike� substitutions may have inadvertently occurred due to the inherent limitations of voice recognition software. If noted kindly bring it to my
attention for correction.
Anticipated Discharge: Today
Subjective/Interval History
-
Date of Service: September 06, 2025
Patient seen and examined at bedside, denies any chest pain or shortness of breath, no abdominal pain, no nausea, no vomiting, no diarrhea or constipation.
Objective Data
-
Labs:
Laboratory Results
09/06/25
04:29
WBC 5.4
Hgb 9.3 L
Hct 27.1 L
Plt Count 121 L
PT 14.1
INR 1.08
APTT 34.3
Sodium 136
Potassium 3.9
Chloride 105
Carbon Dioxide 23
BUN 77 H
Creatinine 2.0 H
Glucose 112 H
Calcium 8.5
Vital Signs:
Vital Signs
Temp Pulse Resp BP Pulse Ox
98.4 F 71 20 135/65 96
09/06/25 07:00 09/06/25 07:00 09/06/25 07:00 09/06/25 07:00 09/06/25 08:15
I&O
09/05/25 09/06/25 09/07/25
06:59 06:59 06:59
Intake Total 1450 / 1450 1450 / 1450
Output Total 1500 / 1500
Balance -50 / -50 1450 / 1450
Physical Exam
-
General: Well Developed, Well Nourished, No Apparent Distress and Comfortable
HEENT: Normocephalic, Atraumatic, Moist Mucous Membranes, No Ptosis, PERRLA and Nose Appears Normal
Respiratory: Rales, Rhonchi, Crackles and Non Labored Respirations
Cardiac: Regular Rhythm and S1/S2
Breast: Deferred by me
GI: Soft, Nontender, Nondistended and Normal Bowel Sounds
Genito-urinary: No Costovertebral Tender
Musculoskeletal: No Clubbing, No Cyanosis and No Edema
Skin: Warm
Neuro: Awake, Alert, Oriented, AO x 3 and No Motor Deficits
Psych: Calm
--- NOTE | 2025-09-06 11:32 | W.DCSUMMARY ---
Discharge Summary
Discharge Data
Date of Admission: 09/02/25
Date of Discharge: 09/06/25
Total time spent discharging patient (in min): 40
-
Pending Results: No
Hospital Course
Hospital course
74F with DM, HTN, HLD, ovarian cancer, p/w several weeks of shortness of breath.
Started on IV Lasix, seen by both nephrology and cardiology.
Echocardiogram done showed
1. Left ventricular ejection fraction is normal with an ejection fraction of 60 % by Ríos's biplane method of discs.
2. Compared to a prior transthoracic echocardiogram study from May 2025 There is no significant change. Global strain is decreased slightly from -19.9 % to -16.9%.
3. Global strain -16.9%.
4. Mild to moderate aortic stenosis with mean pressure gradient of 19 mmHg. Aortic valve area not determined due to limited Doppler data.
Cardiology signed off, okay with oral Lasix
Also seen by oncology, patient status post blood transfusion for anemia
During hospitalization patient was treated from the following
Acute Hypoxic Respiratory failure
Suspected secondary to CHF (see below)
Elevated D-dimer; given history of ovarian cancer, PE was ruled out
V/Q scan: Low probability for PE
Lower extremity Dopplers: Negative for DVT
Weaned off oxygen, now on room air
Acute Heart Failure with Preserved EF
Echo (May 2025): LVEF 59%, moderate aortic stenosis, Stage II diastolic dysfunction
Cardiology consulted
Troponin peaked at 0.039
Continue IV Lasix
Repeat Echocardiogram done showed Left ventricular ejection fraction is normal with an ejection fraction of 60 %
TSH mildly elevated at 4.85; free T4 WNL
Telemetry monitoring, trend weight, strict I&O
Acute Kidney Injury on CKD III
Baseline Cr ~1.1; increased to 2 on admission
Nephrology consulted
Monitor creatinine closely, especially after diuretics
Non-Anion Gap Metabolic Acidosis
Bicarbonate improved.
Nephrology following
Symptomatic Acute on Chronic Anemia
Patient reports baseline Hgb ~10
Denies black stools
Hematest stools ordered and pending
Iron studies (iron, ferritin, TIBC), folate, vitamin B12 ordered; will reorder if results not available
Trend Hgb: Dropped to 6.9, improved to 7.5-->7.9
S/P Transfusion of 1 unit PRBC with additional Lasix 20 mg IV
Diabetes Mellitus, Type II
No longer on medications after weight loss
Hgb A1c: 5.4%
Essential Hypertension
Continue amlodipine, hydralazine, and metoprolol
BP controlled
Hyperlipidemia
Continue simvastatin
Ovarian Cancer
s/p ROXANE/BSO and chemotherapy
Last chemotherapy: Apr 2025
DVT Prophylaxis
SC Heparin
CODE STATUS: Full code
Diet: cardiac diet
Physical therapy recommendations: Home PT
Disposition: Discharge home today
Total time spent on today's encounter was 40 minutes which included time spent in counseling the patient/family regarding diagnosis and treatment plan as listed above, goals of care, and symptom management. Case was discussed with nursing staff,
specialists, and care coordinators/case management. All labs and imaging personally reviewed by me. Remainder the time spent in detailed review of previous records, lab data, imaging, and other medical provider documentation.
Anticipated Discharge: Today
Discharge Plan
-
Patient Disposition: Home with Home Care
Discharge Diagnosis/Procedures: Acute Hypoxic Respiratory failure.
Acute Heart Failure with Preserved EF.
Acute Kidney Injury on CKD III
Diet: Low Sodium
Activity: As tolerated
Instructions: *[facility] Heart Failure Instructions
Referrals:
Carrie Doyle DO [Active, Hematology / Oncology] - in two to three weeks
Obi Cramer MD [Active, Nephrology] - in two to three weeks
Lien Hahn MD [Family Provider, Internal Medicine]
Prescriptions:
Continued
metoprolol succinate [Toprol XL] 50 mg Tablet Extended Release 24 Hr
50 mg PO HS
cyanocobalamin (vitamin B-12) 1,000 mcg Tablet
1,000 mcg PO DAILY
therapeutic multivitamin Tablet
1 tab PO DAILY
amlodipine [Norvasc] 10 mg Tablet
10 mg PO DAILY
simvastatin [Zocor] 20 mg Tablet
20 mg PO HS
zolpidem [Ambien] 5 mg Tablet
5 mg PO HS
furosemide [Lasix] 20 mg Tablet
20 mg PO DAILY
cholecalciferol (vitamin D3) [Vitamin D3] 25 mcg (1,000 unit) Tablet,Chewable
25 mcg PO DAILY
hydralazine 50 mg Tablet
50 mg PO BID
Discharge Orders:
Discharge Patient (As Directed); Ordered 09/06/25
Ordered By: Pavel Murphy
Discharge Date and Time
Print Language: AZERI
--- NOTE | 2025-09-06 11:48 | W.PN.NEPH.PH ---
Today's Communication / Plan
-
Okay for discharge from renal stand
Assessment/Plan
-
Assessment
Decompensated heart failure preserved ejection fraction
JEREMÍAS, progressive kidney decline
Ovarian cancer on chemotherapy
Anemia
Diabetes mellitus type 2
Hypertension
Plan
Follow BMP
Okay with p.o. Lasix as creatinine stabilized
Echo reviewed no significant change
Acuity multifactorial > cardiorenal versus medication > Avastin
. Lasix p.o. on discharge 20 mg
Okay for discharge from renal stand
-
-
Date of Service: September 06, 2025
CC / HPI / ROS
-
Chief Complaint:
JEREMÍAS
History of Present Illness:
JEREMÍAS/Cr up to 2.3
acidosis better
weights down
still on O2
Review of Systems:
no CP/
minimal SOB
Labs
-
Labs:
WBC 5.4 10^3/uL (4.8-10.8) 09/06/25 04:29
RBC 2.97 10^6/uL (4.20-5.40) L 09/06/25 04:29
Hgb 9.3 g/dL (12.0-16.0) L 09/06/25 04:29
Hct 27.1 % (37.0-47.0) L 09/06/25 04:29
Plt Count 121 10^3/uL (130-400) L 09/06/25 04:29
Sodium 136 mmol/L (135-145) 09/06/25 04:29
Potassium 3.9 mmol/L (3.5-5.1) 09/06/25 04:29
Chloride 105 mmol/L (98-107) 09/06/25 04:29
Carbon Dioxide 23 mmol/L (22-30) 09/06/25 04:29
BUN 77 mg/dl (7-17) H 09/06/25 04:29
Creatinine 2.0 mg/dL (0.6-1.0) H 09/06/25 04:29
eGFR 25.73 09/06/25 04:29
Glucose 112 mg/dl (70-99) H 09/06/25 04:29
Calcium 8.5 mg/dl (8.4-10.2) 09/06/25 04:29
[id number] Pept 7440 pg/ml 09/02/25 15:20
Albumin 3.9 g/dl (3.5-5.0) 09/02/25 12:44
Physical Exam
-
Vital Signs:
Vital Signs
Temp Pulse Resp BP Pulse Ox
98.4 F 71 20 135/65 96
09/06/25 07:00 09/06/25 07:00 09/06/25 07:00 09/06/25 07:00 09/06/25 08:15
Cardiovascular:: Regular rate and rhythm
Respiratory:: Bilateral: Coarse
Lung Excursion:: Normal
Abdomen:: Nontender and Soft
Bowel Sounds:: Normal
Extremity Edema:: None: Bilateral:
--- NOTE | 2025-09-06 12:28 | CM ---
CM met with Sabrina to discuss discharge today. Sabrina is happy to be going home; her son will provide transport home.
IMM provided, Sabrina reviewed and signed the IMM. Copy of IMM provided. Signed copy placed in chart.
--- NOTE | 2025-09-07 09:24 | W.HF.CON ---
Heart Failure
- LV Function
Left ventricular function study result: LV Ejection fraction >/= 50%
Ejection Fraction Percentage: 60
- ARNI
Patient already on ARNI: No
Heart Failure ARNI Not Indicated: LV Ejection Fraction >/= 40%
- ACEI/ARB
Patient already on ACEI/ARB: No
Heart Failure ACEI/ARB Not Indicated: LV Ejection Fraction > 40%
- Beta Amalia
Patient already on Evidence Based Beta Amalia: Yes
- Mineralocorticord Receptor Antagonist
Patient already on MRA: No
Heart Failure MRA Not Indicated: LV Ejection Fraction > 40%
- SGLT-2 Inhibitor
Patient already on SGLT-2 Inhibitor: No
Heart Failure SGLT-2 Inhibitor Contraindication: eGFR < 25
- NYHA CHF Classification
NYHA CHF Classification Level: Class III - Symptoms w/ min exertion, interferes w/ nml daily activity
- ACC/AHA Stage
ACC/AHA Stage: Stage C: Symptomatic Heart Failure
[2025-09-08 01:31] LABS: ds-DNA Ab, IgG Reflex To Titer 2 IU (0-24)
== END 2025-09-06 14:41 | disposition home or self-care (01) | DRG 682 ==
LOC: 3 WEST ACU 19:03
PROVIDERS: Emergency Medicine; Internal Medicine; Nurse Practitioner Acute Care; Nurse Practitioner Family; Physician Assistant Medical; ADMITTING PHYSICIAN Internal Medicine; ATTENDING PHYSICIAN General Practice; CONSULT PHYSICIAN Internal Medicine Cardiovascular Disease; CONSULT PHYSICIAN Internal Medicine Hematology & Oncology; CONSULT PHYSICIAN Specialist; EMERGENCY PHYSICIAN Student in an Organized Health Care Education/Training Program; FAMILY PHYSICIAN Internal Medicine
PROC: 30243N1 Transfusion of Nonautologous Red Blood Cells into Central Vein, Percutaneous Approach (ICD-10-PCS; 2025-09-04)
DX: N17.9 Acute kidney failure, unspecified (principal); I50.33 Acute on chronic diastolic (congestive) heart failure; J96.01 Acute respiratory failure with hypoxia; I13.0 Hypertensive heart and chronic kidney disease with heart failure and stage 1 through stage 4 chronic kidney disease, or unspecified chronic kidney disease; E87.20 Acidosis, unspecified; N18.30 Chronic kidney disease, stage 3 unspecified; E11.22 Type 2 diabetes mellitus with diabetic chronic kidney disease; G47.33 Obstructive sleep apnea (adult) (pediatric); E11.40 Type 2 diabetes mellitus with diabetic neuropathy, unspecified; Z85.43 Personal history of malignant neoplasm of ovary; Z87.891 Personal history of nicotine dependence; Z88.8 Allergy status to other drugs, medicaments and biological substances; Z91.048 Other nonmedicinal substance allergy status; Z88.2 Allergy status to sulfonamides; Z88.1 Allergy status to other antibiotic agents; D63.1 Anemia in chronic kidney disease; Z90.710 Acquired absence of both cervix and uterus; Z90.722 Acquired absence of ovaries, bilateral; Z92.21 Personal history of antineoplastic chemotherapy; E78.00 Pure hypercholesterolemia, unspecified; D69.6 Thrombocytopenia, unspecified; K57.30 Diverticulosis of large intestine without perforation or abscess without bleeding; Z96.652 Presence of left artificial knee joint; Z79.899 Other long term (current) drug therapy
CPT/HCPCS: 71046; 78582; 80048; 80053; 81003; 81015; 82010; 82570; 83010; 83036; 83615; 83735; 83880; 84156; 84439; 84443; 84484; 85014; 85018; 85025; 85027; 85045; 85379; 85384; 85610; 85613; 85730; 86225; 86850; 86880; 86900; 86901; 86920; 87086; 87502; 87811; 93005; 93306; 93356; 93970; 96374; 97162; 99285; A9540; A9567; P9016